=== PATIENT | female | born 1955 | race American Indian/Alaskan Native ===

== ENCOUNTER 2017-05-17 14:57 | Emergency (ER) | payer OTHER ==
[2017-05-17 15:46] VITALS: BP 147/82
[2017-05-17 16:44] LABS: Bacteria,Urine 1+ /HPF (Negative); Bilirubin,Urine NEG (Negative); Blood,Urine MOD (Negative); Color,Urine Yellow (Yellow); Granular Casts,Urine 3 /LPF; Mucus,Urine 2+ /HPF; Nitrite,Urine NEG (Negative)
[2017-05-17 17:33] LABS: Basophils # (Auto) 0.1 K/mm3 (0.0-0.1); Basophils % (Auto) 1.2 % (0.0-1.8); Eosinophils # (Auto) 0.4 K/mm3 (0.0-0.4); Eosinophils % (Auto) 7.9 % (0.0-4.3); Hemoglobin 11.7 gm/dl (10.1-14.3); Lymphocytes # (Auto) 1.1 K/mm3 (1.2-5.4); Lymphocytes % (Auto) 21.1 % (13.4-35.0); Mean Corpuscular HGB Conc 33 % (30-34); Mean Corpuscular Hemoglobin 30 pg (28-32); Mean Corpuscular Volume 90 fl (79-97); Monocytes # (Auto) 0.4 K/mm3 (0.0-0.8); Monocytes % (Auto) 8.3 % (0.0-7.3); Platelet Count 222 K/mm3 (140-440); Red Blood Count 3.88 M/mm3 (3.65-5.03); Red Cell Distribution Width 16.5 % (13.2-15.2)
[2017-05-17 17:52] LABS: Calcium 9.3 mg/dL (8.4-10.2)
== END 2017-05-17 20:25 | disposition left against medical advice (07) ==
LOC: ED 14:57
DX: R42 Dizziness and giddiness (principal); R11.0 Nausea; Z53.21 Procedure and treatment not carried out due to patient leaving prior to being seen by health care provider
CPT/HCPCS: 36415; 80048; 81001; 82805; 84484; 85025; 93005; 93010

== ENCOUNTER 2017-11-09 10:35 | Day surgery (SDC) | payer OTHER ==
[~2017-11-09 10:35] MED LIST: NEOFRIN OD SCH; TETRACAINE 0.5% OD PRN
[2017-11-09] MEDS: VIGAMOX OD SCH ×3 (11:00→11:14)
[2017-11-09] MEDS: AK-Dilate OD SCH ×3 (11:00→11:14)
[2017-11-09] MEDS: MYDRIACYL OD SCH ×3 (11:00→11:14)
--- NOTE | 2017-11-09 11:39 | Anesthesia Consultation ---
Anesthesia Consult and Med Hx Date of service: 11/09/17 - Airway Anesthetic Teeth Evaluation: Poor ROM Head & Neck: Adequate Mental/Hyoid Distance: Adequate Mallampati Class: Class II Intubation Access Assessment: Probably Good - Pulmonary Exam CTA: Yes - Cardiac Exam Cardiac Exam: RRR - Pre-Operative Health Status ASA Pre-Surgery Classification: ASA3 Proposed Anesthetic Plan: MAC - Pulmonary Hx Smoking: No Hx Asthma: No COPD: No Hx Pneumonia: No - Cardiovascular System Hx Hypertension: Yes (2014) Hx Heart Attack/AMI: Yes - Central Nervous System Hx Psychiatric Problems: No - Endocrine Hx End Stage Renal Disease: No - Hematic Hx Anemia: No - Other Systems Hx Alcohol Use: No Hx Substance Use: No Hx Cancer: No
[2017-11-09] MEDS ORDERED: VERSED ONE (11:42)
[2017-11-09] MEDS ORDERED: LOPRESSOR IV ONE (11:45)
[2017-11-09] MEDS ORDERED: SUBLIMAZE ONE (11:51)
[2017-11-09] MEDS ORDERED: PRED FORTE 1% ONE (12:24)
[2017-11-09] MEDS ORDERED: DIAMOX PO ONE (12:49)
--- NOTE | 2017-11-09 13:14 | Operative Report ---
Operative Report Operative Report: PATIENT'S NAME: DATE OF : DATE OF SURGERY: 11/09/2017 PREOPERATIVE DIAGNOSIS: Cataract right eye POSTOPERATIVE DIAGNOSIS: Same OPERATIVE PROCEDURE: Phacoemulsification with intraocular lens implantation, right eye SURGEON: Gisella Antonio M.D. EXAM PROCTOR SURGEON: Brittney Lens: [id number] 28.0 D ANESTHESIA: Monitored anesthesia care in combination with topical and intracameral anesthesia because of the established specific risk of reflux, arrhythmias, or anxiety attacks associated with ocular manipulation, as well as the difficulty of the reproduction production manager to manage such potentially catastrophic events while simultaneously attempting to complete the surgical procedure and was deemed necessary for the patient's safety to have an Secondary English Teacher present during the procedure whenever possible. An Secondary English Teacher was utilized to regulate the intravenous sedation of the patient so the patient was cooperative yet not asleep in order for the patient to successfully maintain fixation of the eye on the operating light of the microscope. COMPLICATIONS: o surgical complications No blood loss. ALLERGIES: Penicillin PROGNOSIS: Excellent INDICATIONS FOR SURGERY: The patient is undergoing surgery in the hopes of eliminating or improving these visual difficulties. PROCEDURE: After arriving at the surgery center, the patient was given topical anesthetic and dilating drops, as noted in the record. The patient was then taken into the operating room and given more anesthetic drops. The eyelids , lashes, and lid margins were scrubbed with Betadine solution, and the patient was draped. The Nurse Secondary English Teacher administered IV sedation and monitored the patient during the procedure. The eye was then fixated with a 0.12, and a stab incision was made in the peripheral clear cornea into the anterior chamber. This was made on my left side. Viscoelastic was next used to fill the anterior chamber. The eye was once again fixated with the 0.12 forceps and a keratome was used make an incision in clear cornea peripherally on my right hand side temporally. The capsule forceps were used to open the central anterior capsule and then make a continuous round capsulotomy. Hydrodissection was carried out utilizing a cannula and balanced salt solution to delineate the cortical material from the capsule and the nucleus from the cortical material. The phaco tip was introduced into the eye and used to remove the anterior cortical material in the area of the capsulotomy. Then the phaco tip was buried into the nucleus, and a chopping instrument was introduced into the eye and used to provide countertraction in the nucleus between this instrument and the phaco tip fracturing the nucleus. This procedure was repeated multiple times, providing multiple small segments of the lens, and then the phaco tip was used to remove each of these segments. An I/A tip was then used to remove the remaining cortex. The anterior chamber was refilled with viscoelastic. An one-piece, acrylic intraocular lens was then placed into an inserting cartridge. The tip of the inserting cartridge was introduced into the keratome incision and into the anterior chamber. The implant was gently advanced through the cartridge and into the eye, where it unfolded, and both haptics were placed in the capsular bag, where it centered nicely and appeared to be well fixated. After placement of the intraocular lens, the I~and~A handpiece was placed back into the eye and used to remove the viscoelastic, including viscoelastic that was behind the optic of the intraocular lens. The anterior chamber was then filled with balanced salt solution, and hydration of the wound was used to cause swelling of the wound and more appropriate watertight closure. When the wound was found to be firm, the patient was asked to comment on how bright the light was. If there was no light perception at all or if the light was substantially dimmer than during the rest of the surgery, the amount of fluid in the eye was decompressed to lower the intraocular pressure until the patient could see the bright light again. This was done to avoid any damage or decreased blood flow to the optic nerve. MEDICATIONS APPLIED AT END OF SURGERY: One drop of Pred Forte and Vigamox The patient was given a shield to wear at night and was instructed not to rub or push on the eye. DISCHARGE SUMMARY: The patient was released in stable condition. The patient and those with the patient were given a written sheet of postoperative instructions and counseling on any abnormal laboratory studies. The patient is to see us tomorrow for follow-up in the office and is to call immediately for any difficulties. Gisella Antonio M.D. Date
--- NOTE | 2017-11-09 13:15 | Short Stay Summary ---
Short Stay Documentation Date of service: 11/09/17 - History H&P: obtained from office - Allergies and Medications Current Medications: Allergies Penicillins Allergy (Verified 11/07/17 13:52) Nausea nausea and blackout Home Medications Medication Instructions Recorded Confirmed Last Taken Type Lisinopril [Zestril TAB] 20 mg PO QDAY 02/17/17 11/09/17 11/09/17 07:00 History amLODIPine [Norvasc] 10 mg PO DAILY 02/17/17 11/09/17 11/08/17 09:00 History Aspirin [Aspirin BABY CHEW TAB] 81 mg PO DAILY tab.chew 02/21/17 11/09/1711/08 09:00 Rx Ticagrelor [Brilinta] 90 mg PO BID #60 tablet 02/21/17 11/09/17 11/08/17 22:00 Rx glipiZIDE [Glucotrol] 5 mg PO BID #60 tablet 02/21/17 11/09/17 11/08/17 22:00 Rx ISOSORBIDE MONOnitrate [Imdur ER] 30 mg PO QDAY #30 tablet 06/01/17 11/09/17 09:00 Rx Metoprolol [Lopressor TAB] 25 mg PO BID #60 tablet 06/01/17 11/09/17 11/08/17 09 :00 Rx Active Medications Moxifloxacin HCl (Vigamox) 1 drops OD Q5MIN [facility] Stop: 11/11/17 06:01 Last Admin: 11/09/17 11:14 Dose: 1 drops Phenylephrine HCl (Ak-Dilate) 1 drops OD Q5MIN [facility] Stop: 11/09/17 23:59 Last Admin: 11/09/17 11:14 Dose: 1 drops Prednisolone Acetate (Pred Forte 1%) 1 drops OD QID ISHAN Last Admin: 11/09/17 12:40 Dose: 1 drops Tetracaine HCl (Tetracaine 0.5%) 1 drops OD Q5M PRN PRN Reason: Anesthesia Last Admin: 11/09/17 11:00 Dose: 1 drops Tropicamide (Mydriacyl) 1 drops OD Q5MIN [facility] Stop: 11/11/17 06:01 Last Admin: 11/09/17 11:14 Dose: 1 drops - Brief post op/procedure progress note Date of procedure: 11/09/17 Pre-op diagnosis: right cataract Post-op diagnosis: same Procedure: Phacoemulsification with intraocular lens insertion right eye Anesthesia: MAC, local Surgeon: TASHI MALAGON Estimated blood loss: none Pathology: none Condition: stable - Disposition Condition at discharge: Good Disposition: DC-01 TO HOME OR SELFCARE - Discharge Diagnoses (1) Nuclear cataract of right eye Status: Resolved Short Stay Discharge Plan Follow up with: KB CHRISTOPHER MD [Primary Care Provider] - 7 Days Forms: Outpatient Surgery DC Inst.
[2017-11-09 13:30] VITALS: BP 160/72
[2017-11-09] MEDS ORDERED: PRED FORTE 1% OD SCH (14:00)
== END 2017-11-09 13:25 | disposition home or self-care (01) ==
LOC: OR 10:35
DX: E11.36 Type 2 diabetes mellitus with diabetic cataract (principal); H25.11 Age-related nuclear cataract, right eye; I10 Essential (primary) hypertension; I25.10 Atherosclerotic heart disease of native coronary artery without angina pectoris; I25.2 Old myocardial infarction; Z79.82 Long term (current) use of aspirin; Z79.84 Long term (current) use of oral hypoglycemic drugs; Z88.0 Allergy status to penicillin; Z95.5 Presence of coronary angioplasty implant and graft; Z98.891 History of uterine scar from previous surgery; Z98.890 Other specified postprocedural states
CPT/HCPCS: 66984; 82962; J2250; J3010; V2632

== ENCOUNTER 2018-09-29 18:29 | Inpatient (IN) | payer OTHER ==
--- NOTE | 2018-09-29 18:43 | Emergency Department Report ---
Blank Doc - Documentation Documentation: 62 y/o female with PMH of DM, CAD, HTN whom recnetly loss her 3 days ago presents to ED after having a near syncope episode while leaving the home for arrangements. She was very pale and regain some energy and ocolor after having a Coke A Cola. Plan. Cardiac Eval
--- NOTE | 2018-09-29 19:13 | XRay Report ---
PROCEDURE: XR CHEST ROUTINE 2V TECHNIQUE: PA and lateral chest radiographs were obtained. HISTORY: Syncope COMPARISONS: None. FINDINGS: Frontal and lateral views the chest were acquired. The heart is normal in size. The lungs a ppear clear. The pleura and mediastinum are within normal limits. IMPRESSION: No active disease in the chest This document is electronically signed by Kartik Lovell MD., September 29 2018 07:11:09 PM ET
[2018-09-29 19:28] LABS: Alanine Aminotransferase 14 units/L (7-56); Albumin 4.1 g/dL (3.9-5); BUN/Creatinine Ratio 25; Blood Urea Nitrogen 28 mg/dL (7-17); Calcium 9.6 mg/dL (8.4-10.2); Hemolysis Index 11
[2018-09-29 19:42] LABS: Basophils % (Auto) 0.3 % (0.0-1.8); Eosinophils # (Auto) 0.1 K/mm3 (0.0-0.4); Eosinophils % (Auto) 1.4 % (0.0-4.3); Lymphocytes # (Auto) 1.2 K/mm3 (1.2-5.4); Lymphocytes % (Auto) 11.6 % (13.4-35.0); Mean Corpuscular HGB Conc 37 % (30-34); Mean Corpuscular Volume 91 fl (79-97); Monocytes # (Auto) 0.7 K/mm3 (0.0-0.8); Monocytes % (Auto) 6.8 % (0.0-7.3); Platelet Count 312 K/mm3 (140-440); Red Blood Count 1.25 M/mm3 (3.65-5.03); Red Cell Distribution Width 14.2 % (13.2-15.2)
[2018-09-29 19:50] LABS: Hemoglobin 4.2 gm/dl (10.1-14.3)
[2018-09-29 19:51] LABS: Hematocrit 11.3 % (30.3-42.9)
--- NOTE | 2018-09-29 20:21 | Emergency Department Report ---
ED Syncope HPI - General Chief Complaint: Syncope Stated Complaint: PASSED OUT Time Seen by Provider: 09/29/18 20:10 Source: patient, family Exam Limitations: no limitations - History of Present Illness Initial Comments: Patient is a 62-year-old female that presents to emergency with complaints of near syncopal episode. Patient states she was shopping and became lightheaded and diaphoretic. Patient states she felt like her sugar was low. She states she never had a syncopal episode or passed out just felt like she was going to pass out. Patient states that she did not have any chest pain or shortness of breath. Patient states he drank a Coke and felt better. Patient denies loss of consciousness. Patient denies head injury. Patient states she has a history of high cholesterol, hypertension, diabetes and NE 1 and CAD with 4 stents. Timing/Prior Episodes: no prior history, single episode today Precipitating Factors: Positive: diaphoresis, lightheadedness Context: activity, emotional stress Loss of Consciousness: no loss of consciousness Current Symptoms: back to normal. denies: blurred vision, chest pain, diaphoresis, dizziness, headache, injury, lightheadedness, loss of bladder control, loss of bowel control, motionless, nausea, pale, shallow/rapid breathing, weak/absent pulse, weakness - Related Data Allergies/Adverse Reactions: Allergies Penicillins Allergy (Verified 09/29/18 18:30) Nausea nausea and blackout Home Medications: Ambulatory Orders Lisinopril [Zestril TAB] 20 mg PO QDAY 02/17/17 amLODIPine [Norvasc] 10 mg PO DAILY 02/17/17 Aspirin [Aspirin BABY CHEW TAB] 81 mg PO DAILY tab.chew 02/21/17 ISOSORBIDE MONOnitrate [Imdur ER] 30 mg PO QDAY #30 tablet 06/01/17 Metoprolol [Lopressor TAB] 25 mg PO BID #60 tablet 06/01/17 Ticagrelor [Brilinta] 90 mg PO DAILY 09/29/18 glipiZIDE [Glucotrol] 5 mg PO DAILY 09/29/18 ED Review of Systems ROS: Stated complaint: PASSED OUT Other details as noted in HPI Constitutional: diaphoresis, malaise. denies: chills, fever Eyes: denies: eye pain, eye discharge, vision change ENT: denies: ear pain, throat pain Respiratory: denies: cough, shortness of breath, wheezing Cardiovascular: denies: chest pain, palpitations Endocrine: no symptoms reported Gastrointestinal: denies: abdominal pain, nausea, diarrhea, constipation, hematemesis, melena, hematochezia Genitourinary: denies: urgency, dysuria, discharge Musculoskeletal: denies: back pain, joint swelling, arthralgia Skin: denies: rash, lesions Neurological: denies: headache, weakness, paresthesias Psychiatric: denies: anxiety, depression Hematological/Lymphatic: denies: easy bleeding, easy bruising ED Past Medical Hx - Past Medical History Previous Medical History?: Yes Hx Hypertension: Yes (since 2014) Hx Heart Attack/AMI: Yes Hx Diabetes: Yes (since 2003) - Surgical History Past Surgical History?: Yes Hx Coronary Stent: Yes (X4) - Family History Family history: no significant - Social History Smoking Status: Never Smoker Substance Use Type: None - Medications Home Medications: Home Medications Medication Instructions Recorded Confirmed Last Taken Type Lisinopril [Zestril TAB] 20 mg PO QDAY 02/17/17 09/29/18 03/28/18 History amLODIPine [Norvasc] 10 mg PO DAILY 02/17/17 09/29/18 03/28/18 History Aspirin [Aspirin BABY CHEW TAB] 81 mg PO DAILY tab.chew 02/21/17 09/29/18 03/28/18 Rx ISOSORBIDE MONOnitrate [Imdur ER] 30 mg PO QDAY #30 tablet 06/01/17 09/29/18 03/28/18 Rx Metoprolol [Lopressor TAB] 25 mg PO BID #60 tablet 06/01/17 09/29/18 03/29/18 06:30 Rx Ticagrelor [Brilinta] 90 mg PO DAILY 09/29/18 09/29/18 Unknown History glipiZIDE [Glucotrol] 5 mg PO DAILY 09/29/18 09/29/18 Unknown History ED Physical Exam - General Limitations: No Limitations General appearance: alert, in no apparent distress - Head Head exam: Present: atraumatic, normocephalic - Eye Eye exam: Present: normal appearance, PERRL Pupils: Present: normal accommodation - ENT ENT exam: Present: mucous membranes moist - Neck Neck exam: Present: normal inspection. Absent: tenderness - Respiratory Respiratory exam: Present: normal lung sounds bilaterally. Absent: respiratory distress, wheezes, rales - Cardiovascular Cardiovascular Exam: Present: regular rate, normal rhythm. Absent: systolic murmur, diastolic murmur, rubs, gallop - GI/Abdominal GI/Abdominal exam: Present: soft, normal bowel sounds. Absent: distended, tenderness, guarding - Rectal Rectal exam: Present: normal inspection, normal rectal tone, heme (-) stool, other (nurse Tisha in the room during rectal exam). Absent: heme (+) stool, black stool, bloody stool - Extremities Exam Extremities exam: Present: normal inspection - Back Exam Back exam: Present: normal inspection - Neurological Exam Neurological exam: Present: alert, oriented X3 - Psychiatric Psychiatric exam: Present: normal affect, normal mood - Skin Skin exam: Present: warm, dry, intact, normal color. Absent: rash ED Course Vital Signs 09/29/18 09/29/18 09/29/18 18:38 20:25 21:04 Temperature 98.0 F 97.6 F Pulse Rate 68 75 78 Respiratory 18 16 Rate Blood Pressure 129/58 152/108 Blood Pressure 190/81 [Left] O2 Sat by Pulse 99 100 Oximetry 09/29/18 09/29/18 22:00 23:00 Temperature Pulse Rate 82 82 Respiratory 22 19 Rate Blood Pressure 114/57 136/72 Blood Pressure [Left] O2 Sat by Pulse 100 100 Oximetry - Reevaluation(s) Reevaluation #1: Discussed all results with patient. Patient will be admitted to the hospitalist service. Patient agrees to plan of care. 09/29/18 20:51 - Consultations Consultation #1: Hospitalist consulted for admission. Hospitalist to admit patient. Hospitalist to assume care patient. 09/29/18 20:52 ED Medical Decision Making - Lab Data Result diagrams: 09/29/18 22:58 09/29/18 18:46 - EKG Data -: EKG Interpreted by Me EKG shows normal: sinus rhythm, axis, intervals, QRS complexes, ST-T waves Rate: normal - Radiology Data Radiology results: report reviewed, image reviewed PROCEDURE: XR CHEST ROUTINE 2V TECHNIQUE: PA and lateral chest radiographs were obtained. HISTORY: Syncope COMPARISONS: None. FINDINGS: Frontal and lateral views the chest were acquired. The heart is normal in size. The lungs appear clear. The pleura and mediastinum are within normal limits. IMPRESSION: No active disease in the chest - Medical Decision Making Patient is a 62-year-old female that presents emergency room for near syncope and lightheadedness. Patient found to have severe anemia. Patient typed and crossed for 1 unit. Patient has history of CAD. Patient admitted to the hospitalist service. Patient's EKG negative for acute findings. Patient's other labs unremarkable. - Differential Diagnosis anemia. Near syncope. Lightheadedness. Critical Care Time: Yes Critical care attestation.: If time is entered above; I have spent that time in minutes in the direct care of this critically ill patient, excluding procedure time. Critical Care Time: 35 minutes ED Disposition Clinical Impression: Severe anemia, Near syncope CAD (coronary artery disease) Qualifiers: Coronary Disease-Associated Artery/Lesion type: [place] artery [place] vs. transplanted heart: [place] heart Associated angina: without angina Qualified Code(s): I25.10 - Atherosclerotic heart disease of [place] coronary artery wit hout angina pectoris Hypertension Qualifiers: Hypertension type: essential hypertension Qualified Code(s): I10 - Essential (primary) hypertension Anemia Qualifiers: Anemia type: unspecified type Qualified Code(s): D64.9 - Anemia, unspecified Disposition: DC-09 OP ADMIT IP TO THIS HOSP Is pt being admited?: Yes Does the pt Need Aspirin: No Condition: Critical Time of Disposition: 20:59
[2018-09-29] MEDS ORDERED: NACL 0.9% 500 ML 500 ML IV ONE (20:53)
[2018-09-29] MEDS ORDERED: APRESOLINE IV ONE (20:58)
[2018-09-29 23:16] LABS: Hematocrit 33.5 % (30.3-42.9); Hemoglobin 11.6 gm/dl (10.1-14.3); Mean Corpuscular HGB Conc 35 % (30-34); Mean Corpuscular Volume 91 fl (79-97); Platelet Count 199 K/mm3 (140-440); Red Blood Count 3.69 M/mm3 (3.65-5.03); Red Cell Distribution Width 14.2 % (13.2-15.2)
[2018-09-29] MEDS ORDERED: ZOFRAN IV PRN (23:26)
[2018-09-29] MEDS ORDERED: TYLENOL PO PRN (23:26)
[2018-09-29] MEDS ORDERED: SODIUM CHLORIDE FLUSH SYRINGE 10 ML IV PRN (23:26)
--- NOTE | 2018-09-29 23:32 | History and Physical Report ---
History of Present Illness Date of examination: 09/29/18 History of present illness: 62-year-old lady with a history of hypertension, diabetes, coronary artery disease comes emergency room with complaints almost passing out while shopping. She felt dizzy, jittery, everything got foggy. She thought her sugar was low and drank some coke,blood sugar was not checked. She states her symptoms improve after drinking coke. Denies any kind of bleeding Review Of Systems: Constitutional: no weight loss Ears, eyes, nose, mouth and throat: no nasal congestion, no nasal discharge, no sinus pressure, blurry vision, diplopia Neck: No neck pain or rigidity. Cardiovascular: No palpitations, chest pain Respiratory: No shortness of breath, cough Gastrointestinal: No abdominal pain, hematochezia Genitourinary : no dysuria, frequency , hematuria Musculoskeletal: no muscle ache Integumentary: no rash, no pruritis Neurological: no parathesias, focal weakness Endocrine: no cold or heat intolerance, no polyuria or polydipsia Hematologic/Lymphatic: no easy bruising, no easy bleeding, no gland swelling Allergic/Immunologic: no urticaria, no angioedema. PAST MEDICAL HISTORY:hypertension, diabetes, coronary artery disease PAST SURGICAL HISTORY: None FAMILY HISTORY: Hypertension SOCIAL HISTORY: Denies alcohol, tobacco, drugs Medications and Allergies Allergies Allergy/AdvReac Type Severity Reaction Status Date / Time Penicillins Allergy Nausea Verified 09/29/18 18:30 Home Medications Medication Instructions Recorded Confirmed Last Taken Type Lisinopril [Zestril TAB] 20 mg PO QDAY 02/17/17 09/29/18 03/28/18 History amLODIPine [Norvasc] 10 mg PO DAILY 02/17/17 09/29/18 03/28/18 History Aspirin [Aspirin BABY CHEW TAB] 81 mg PO DAILY tab.chew 02/21/17 09/29/18 03/28/18 Rx ISOSORBIDE MONOnitrate [Imdur ER] 30 mg PO QDAY #30 tablet 06/01/17 09/29/18 03/28/18 Rx Metoprolol [Lopressor TAB] 25 mg PO BID #60 tablet 06/01/17 09/29/18 03/29/18 06:30 Rx Ticagrelor [Brilinta] 90 mg PO DAILY 09/29/18 09/29/18 Unknown History glipiZIDE [Glucotrol] 5 mg PO DAILY 09/29/18 09/29/18 Unknown History Active Meds: Active Medications Acetaminophen (Tylenol) 650 mg PO Q4H PRN PRN Reason: Pain MILD(1-3)/Fever >100.5/BHATTI Enoxaparin Sodium (Lovenox) 30 mg SUB-Q QDAY ISHAN Ondansetron HCl (Zofran) 4 mg IV Q8H PRN PRN Reason: Nausea And Vomiting Sodium Chloride (Sodium Chloride Flush Syringe 10 Ml) 10 ml IV BID ISHAN Sodium Chloride (Sodium Chloride Flush Syringe 10 Ml) 10 ml IV PRN PRN PRN Reason: LINE FLUSH Exam - Physical Exam Narrative exam: Gen. appearance: Patient lying in bed in no acute distress HEENT: Normocephalic/atraumatic, pupils equal round reactive to light, extra occular movement intact, no scleral icterus, no JVD or thyromegaly or nodule, neck is supple, mucous membrane moist, no erythema or exudate Heart: S1-S2, regular rate and rhythm Lungs: Clear to auscultation bilateral breathing comfortable Abdomen: Positive bowel sounds, nontender, nondistended, no organomegaly Extremities: No edema, cyanosis, clubbing Neuro:: Oriented 3 , cranial nerves II-12 intact, speech, motor intact Skin: No rash, nodules, warm dry - Constitutional Vitals: Temp Pulse Resp BP Pulse Ox 97.6 F 82 19 136/72 100 09/29/18 20:25 09/29/18 23:00 09/29/18 23:00 09/29/18 23:00 09/29/18 23:00 Results - Labs CBC & Chem 7: 09/29/18 22:58 09/29/18 18:46 Labs: Abnormal lab results 09/29/18 09/29/18 09/29/18 Range/Units 18:46 18:46 20:10 RBC 1.25 L (3.65-5.03) M/mm3 Hgb 4.2 L* (10.1-14.3) gm/dl Hct 11.3 L* (30.3-42.9) % MCH 33 H (28-32) pg MCHC 37 H (30-34) % Lymph % (Auto) 11.6 L (13.4-35.0) % Seg Neutrophils % 79.9 H (40.0-70.0) % Seg Neutrophils # 8.0 H (1.8-7.7) K/mm3 BUN 28 H (7-17) mg/dL Glucose 297 H (65-100) mg/dL Crossmatch See Detail 09/29/18 Range/Units 22:58 RBC (3.65-5.03) M/mm3 Hgb (10.1-14.3) gm/dl Hct (30.3-42.9) % MCH (28-32) pg MCHC 35 H (30-34) % Lymph % (Auto) (13.4-35.0) % Seg Neutrophils % (40.0-70.0) % Seg Neutrophils # (1.8-7.7) K/mm3 BUN (7-17) mg/dL Glucose (65-100) mg/dL Crossmatch - Imaging and Cardiology EKG: image reviewed Chest x-ray: report reviewed Assessment and Plan Assessment Anemia Near syncope Coronary artery disease Hypertension Diabetes Plan Admit to medicine Repeat CBCD, rule out error, hold transfusion Check cardiac enzymes, carotid doppler, echo, start fluids Check fingersticks and initiate insulin sliding scale Hold diabetic medication for now Continue appropriate outpatient medications DVT prophylaxis
[2018-09-30 00:27] LABS: Creatine Kinase MB 2.8 ng/mL (0.0-4.0)
[2018-09-30] MEDS ORDERED: NACL 0.45% 1000 ML 1,000 ML IV SCH (02:00)
[2018-09-30] MEDS ORDERED: D50W (25GM) Syringe IV PRN (06:02)
[2018-09-30] MEDS ORDERED: GLUCOTROL PO SCH (08:00)
[2018-09-30] MEDS: LOPRESSOR PO SCH ×2 (09:34→22:22)
[2018-09-30] MEDS: HumaLOG SUB-Q SCH ×4 (09:34→22:23)
[2018-09-30] MEDS: NORVASC PO SCH (09:35)
[2018-09-30] MEDS: BABY ASPIRIN PO SCH (09:35)
[2018-09-30] MEDS: ZESTRIL PO SCH (09:35)
[2018-09-30] MEDS ORDERED: LOVENOX SUB-Q SCH (10:00)
[2018-09-30] MEDS ORDERED: BRILINTA PO SCH ×2 (10:00→22:00)
[2018-09-30 10:43] LABS: BUN/Creatinine Ratio 31; Blood Urea Nitrogen 25 mg/dL (7-17); Calcium 9.5 mg/dL (8.4-10.2); Hemolysis Index 0
--- NOTE | 2018-09-30 10:43 | Vascular Lab Report ---
PROCEDURE: VL CAROTID DUPLEX BILAT HISTORY: near syncope FINDINGS: Real-time ultrasound of the cervical arterial vasculature was performed using grayscale and color Doppler images. On the right, peak systolic velocity in the common carotid artery was 102 cm/s. In the internal carot id was 86 cm/s and in the external carotid 107 cm/s. Flow in the vertebral artery was antegrade at 65 cm/s. The ratio of flow of the internal carotid to the common carotid was 0.84 which is within jameson l limits.There is plaque in the right proximal internal carotid artery resulting in a short segment e stimated 30% stenosis On the left, peak systolic velocity in the common carotid artery was 99.5 cm/s. In the internal carot id it was 93 cm/s and in the external carotid 77 cm/s. Flow in the vertebral artery was antegrade at 37 cm/s. The ratio of flow of the internal carotid to the common carotid was 0.93 which is within nor mal limits. IMPRESSION: No stenosis of greater than 50% is seen in the cervical arterial vasculature This document is electronically signed by Kartik Lovell MD., September 30 2018 10:41:10 AM ET
[2018-09-30 10:47] LABS: Basophils % (Auto) 0.4 % (0.0-1.8); Eosinophils # (Auto) 0.1 K/mm3 (0.0-0.4); Hematocrit 33.1 % (30.3-42.9); Hemoglobin 11.1 gm/dl (10.1-14.3); Lymphocytes # (Auto) 1.1 K/mm3 (1.2-5.4); Mean Corpuscular HGB Conc 34 % (30-34); Mean Corpuscular Volume 92 fl (79-97); Monocytes # (Auto) 0.4 K/mm3 (0.0-0.8); Monocytes % (Auto) 8.7 % (0.0-7.3); Platelet Count 197 K/mm3 (140-440); Red Cell Distribution Width 14.5 % (13.2-15.2)
[2018-09-30 10:51] LABS: Creatine Kinase MB 2.3 ng/mL (0.0-4.0)
--- NOTE | 2018-09-30 11:17 | Progress Note ---
Assessment and Plan Assessment and plan: 62f w pmh of cad who pw near syncope dx near syncope cad htn dm plan carotid doppler neg, echo pending no events on tele -cardiology input appreciated History Interval history: Review of systems Constitutional: No fevers, no malaise, no joint pains CVS: No chest pain, no orthopnea, no dyspnea on exertion, no pedal edema GI: No abdominal pain, no diarrhea, no vomiting, no constipation Respiratory: no wheezing, no coughing Hospitalist Physical - Physical exam Narrative exam: General.: Appears well, no distress, nontoxic HEENT: Moist mucous membranes, extraocular muscles intact, no lymphadenopathy Neck: supple Cardiac: S1-S2 heard Lungs: clear to auscultation bilaterally Abdomen: soft , nontender, nondistended, bowel sounds positive Extremities: no edema clubbing or cyanosis Skin: no rash or lesions Neurologic: no gross focal deficits Psych: calm, and cooperative - Constitutional Vitals: Temp Pulse Resp BP Pulse Ox 98.5 F 67 18 123/63 100 09/30/18 08:49 09/30/18 08:49 09/30/18 08:49 09/30/18 08:49 09/30/18 08:49 Results - Labs CBC & Chem 7: 09/30/18 09:43 09/30/18 09:43 Labs: Laboratory Last Values WBC 5.0 K/mm3 (4.5-11.0) 09/30/18 09:43 RBC 3.60 M/mm3 (3.65-5.03) L 09/30/18 09:43 Hgb 11.1 gm/dl (10.1-14.3) 09/30/18 09:43 Hct 33.1 % (30.3-42.9) 09/30/18 09:43 MCV 92 fl (79-97) 09/30/18 09:43 MCH 31 pg (28-32) 09/30/18 09:43 MCHC 34 % (30-34) 09/30/18 09:43 RDW 14.5 % (13.2-15.2) 09/30/18 09:43 Plt Count 197 K/mm3 (140-440) 09/30/18 09:43 Lymph % (Auto) 22.0 % (13.4-35.0) 09/30/18 09:43 Sac % (Auto) 8.7 % (0.0-7.3) H 09/30/18 09:43 Eos % (Auto) 2.0 % (0.0-4.3) 09/30/18 09:43 Baso % (Auto) 0.4 % (0.0-1.8) 09/30/18 09:43 Lymph # 1.1 K/mm3 (1.2-5.4) L 09/30/18 09:43 Sac # 0.4 K/mm3 (0.0-0.8) 09/30/18 09:43 Eos # 0.1 K/mm3 (0.0-0.4) 09/30/18 09:43 Baso # 0.0 K/mm3 (0.0-0.1) 09/30/18 09:43 Seg Neutrophils % 66.9 % (40.0-70.0) 09/30/18 09:43 Seg Neutrophils # 3.4 K/mm3 (1.8-7.7) 09/30/18 09:43 Sodium 143 mmol/L (137-145) 09/30/18 09:43 Potassium 4.0 mmol/L (3.6-5.0) 09/30/18 09:43 Chloride 104.8 mmol/L (98-107) 09/30/18 09:43 Carbon Dioxide 26 mmol/L (22-30) 09/30/18 09:43 16 mmol/L 09/30/18 09:43 BUN 25 mg/dL (7-17) H 09/30/18 09:43 0.8 mg/dL (0.7-1.2) 09/30/18 09:43 Estimated GFR > 60 ml/min 09/30/18 09:43 31 % 09/30/18 09:43 Glucose 148 mg/dL (65-100) H 09/30/18 09:43 POC Glucose 163 (70-105) H 09/30/18 09:19 Calcium 9.5 mg/dL (8.4-10.2) 09/30/18 09:43 0.40 mg/dL (0.1-1.2) 09/29/18 18:46 AST 17 units/L (5-40) 09/29/18 18:46 ALT 14 units/L (7-56) 09/29/18 18:46 78 units/L (35-129) 09/29/18 18:46 93 units/L (30-135) 09/30/18 09:43 CK-MB (CK-2) 2.3 ng/mL (0.0-4.0) 09/30/18 09:43 CK-MB (CK-2) Rel Index 2.4 (0-4) 09/30/18 09:43 < 0.010 ng/mL (0.00-0.029) 09/30/18 09:43 NT-Pro-B Natriuret Pep 436.0 pg/mL (0-900) 09/29/18 18:46 7.5 g/dL (6.3-8.2) 09/29/18 18:46 4.1 g/dL (3.9-5) 09/29/18 18:46 1.2 % 09/29/18 18:46 Blood Type O POSITIVE 09/29/18 20:10 Antibody Screen Negative 09/29/18 20:10 Crossmatch See Detail 09/29/18 20:10 Active Medications - Current Medications Current Medications: Generic Name Dose Route Start Last Admin Trade Name Freq PRN Reason Stop Dose Admin Acetaminophen 650 mg 09/29/18 23:26 Tylenol PO Q4H PRN Pain MILD(1-3)/Fever >100.5/BHATTI Amlodipine Besylate 10 mg 09/30/18 10:00 09/30/18 09:35 Norvasc PO 10 mg DAILY ISHAN Administration Aspirin 81 mg 09/30/18 10:00 09/30/18 09:35 Baby Aspirin PO 81 mg DAILY ISHAN Administration Dextrose 50 ml 09/30/18 06:02 D50w (25gm) Syringe IV PRN PRN Hypoglycemia Sodium Chloride 1,000 mls @ 75 mls/hr 09/30/18 02:00 Nacl 0.45% 1000 Ml IV DIRECT [facility] Insulin Human Lispro 0 unit 09/30/18 07:30 09/30/18 09:34 Humalog SUB-Q 2 unit ACHS ISHAN Administration Protocol Lisinopril 20 mg 09/30/18 10:00 09/30/18 09:35 Zestril PO 20 mg QDAY ISHAN Administration Metoprolol Tartrate 25 mg 09/30/18 10:00 09/30/18 09:34 Lopressor PO 25 mg BID ISHAN Administration Ondansetron HCl 4 mg 09/29/18 23:26 Zofran IV Q8H PRN Nausea And Vomiting Sodium Chloride 10 ml 09/30/18 10:00 Sodium Chloride Flush Syringe 10 Ml IV BID ISHAN Sodium Chloride 10 ml 09/29/18 23:26 Sodium Chloride Flush Syringe 10 Ml IV PRN PRN LINE FLUSH Ticagrelor 90 mg 09/30/18 10:00 09/30/18 09:35 Brilinta PO 90 mg DAILY ISHAN Administration Nutrition/Malnutrition Assess - Dietary Evaluation Nutrition/Malnutrition Findings: Nutrition Notes Start: 09/30/18 08:48 Freq: Status: Active Protocol: Document 09/30/18 08:48 CHERRY (Rec: 09/30/18 08:48 CHERRY [id number] [email or web address]) Nutrition Notes Need for Assessment generated from: bench inspector Initial or Follow up Brief Note Subjective/Other Information Pt screened for new onset of DM, however, pt with hx of DM. Will assess upon further consult or LOS.
--- NOTE | 2018-09-30 13:53 | Consultation ---
<BERRY OROZCO - Last Filed: 09/30/18 14:19> History of Present Illness Consult date: 09/30/18 Requesting physician: CLARE HAAS Consult reason: syncope History of present illness: Ms. Nieves is a 62 y/o female with a medical history significant for hypertension, diabetes, CAD s/p PCI to the LAD and RCA in 2017 and palpitations who presented to the ED on 09/30/2018 after a near-syncopal episode while shopping. She states she felt dizzy and jittery and initially attributed the symptoms to hypoglycemia; they resolved after drinking a Coke. She also reports not eating well, leading to abnormal blood sugars and additionally, she has experienced the stress of her 's recent . She follows with Dr. Manning in our office. An echo in May 2017 found an EF of 55 to 60 percent and no valvular abn ormalities. A Lexiscan stress test in April 2017 was negative for ischemia. Past History Past Medical History: CAD, diabetes, hypertension Past Surgical History: PTCA Medications and Allergies Allergies Allergy/AdvReac Type Severity Reaction Status Date / Time Penicillins Allergy Nausea Verified 09/29/18 18:30 Home Medications Medication Instructions Recorded Confirmed Last Taken Type Lisinopril [Zestril TAB] 20 mg PO QDAY 02/17/17 09/30/18 1 Day Ago History ~09/29/18 amLODIPine [Norvasc] 10 mg PO DAILY 02/17/17 09/30/18 1 Day Ago History ~09/29/18 Aspirin [Aspirin BABY CHEW TAB] 81 mg PO DAILY tab.chew 02/21/17 09/30/18 1 Day Ago Rx ~09/29/18 ISOSORBIDE MONOnitrate [Imdur ER] 30 mg PO QDAY #30 tablet 06/01/17 09/30/18 1 Day Ago Rx ~09/29/18 Metoprolol [Lopressor TAB] 25 mg PO BID #60 tablet 06/01/17 09/30/18 1 Day Ago Rx ~09/29/18 Ticagrelor [Brilinta] 90 mg PO DAILY 09/29/18 09/30/18 1 Day Ago History ~09/29/18 glipiZIDE [Glucotrol] 5 mg PO DAILY 09/29/18 09/30/18 1 Day Ago History ~09/29/18 Active Meds: Active Medications Acetaminophen (Tylenol) 650 mg PO Q4H PRN PRN Reason: Pain MILD(1-3)/Fever >100.5/BHATTI Amlodipine Besylate (Norvasc) 10 mg PO DAILY [facility] Last Admin: 09/30/18 09:35 Dose: 10 mg Documented by: Aspirin (Baby Aspirin) 81 mg PO DAILY [facility] Last Admin: 09/30/18 09:35 Dose: 81 mg Documented by: Dextrose (D50w (25gm) Syringe) 50 ml IV PRN PRN PRN Reason: Hypoglycemia Sodium Chloride (Nacl 0.45% 1000 Ml) 1,000 mls @ 75 mls/hr IV DIRECT [facility] Insulin Human Lispro (Humalog) 0 unit SUB-Q ACHS [facility]; Protocol Last Admin: 09/30/18 12:27 Dose: Not Given Documented by: Lisinopril (Zestril) 20 mg PO QDAY [facility] Last Admin: 09/30/18 09:35 Dose: 20 mg Documented by: Metoprolol Tartrate (Lopressor) 25 mg PO BID [facility] Last Admin: 09/30/18 09:34 Dose: 25 mg Documented by: Ondansetron HCl (Zofran) 4 mg IV Q8H PRN PRN Reason: Nausea And Vomiting Sodium Chloride (Sodium Chloride Flush Syringe 10 Ml) 10 ml IV BID [facility] Sodium Chloride (Sodium Chloride Flush Syringe 10 Ml) 10 ml IV PRN PRN PRN Reason: LINE FLUSH Ticagrelor (Brilinta) 90 mg PO DAILY [facility] Last Admin: 09/30/18 09:35 Dose: 90 mg Documented by: Review of Systems All systems: negative Constitutional: fatigue, other Physical Examination Last Vital Signs Temp 98.5 F 09/30/18 08:49 Pulse 61 09/30/18 12:24 Resp 18 09/30/18 08:49 BP 127/62 09/30/18 12:24 Pulse Ox 97 09/30/18 12:24 General appearance: no acute distress HEENT: Positive: PERRL Neck: Positive: neck supple Cardiac: Positive: Reg Rate and Rhythm Lungs: Positive: Normal Exam Abdomen: Positive: Unremarkable Female genitourinary: deferred Skin: Positive: Clear Musculoskeletal: Normal Range of Motion Extremities: Present: normal Results 09/30/18 09:43 09/30/18 09:43 Cardiac Enzymes 09/29/18 09/29/18 09/30/18 Range/Units 18:46 23:32 09:43 AST 17 (5-40) units/L CK-MB (CK-2) 2.8 2.3 (0.0-4.0) ng/mL CBC 09/29/18 09/29/18 09/30/18 Range/Units 18:46 22:58 09:43 WBC 10.0 7.0 5.0 (4.5-11.0) K/mm3 RBC 1.25 L 3.69 3.60 L (3.65-5.03) M/mm3 Hgb 4.2 L* 11.6 D 11.1 (10.1-14.3) gm/dl Hct 11.3 L* 33.5 D 33.1 (30.3-42.9) % Plt Count 312 199 197 (140-440) K/mm3 Lymph # 1.2 1.1 L (1.2-5.4) K/mm3 [place] # 0.7 0.4 (0.0-0.8) K/mm3 Eos # 0.1 0.1 (0.0-0.4) K/mm3 Baso # 0.0 0.0 (0.0-0.1) K/mm3 Comprehensive Metabolic Panel 09/29/18 09/30/18 Range/Units 18:46 09:43 Sodium 141 143 (137-145) mmol/L Potassium 4.6 4.0 (3.6-5.0) mmol/L Chloride 104.4 104.8 (98-107) mmol/L Carbon Dioxide 25 26 (22-30) mmol/L BUN 28 H 25 H (7-17) mg/dL Creatinine 1.1 0.8 (0.7-1.2) mg/dL Glucose 297 H 148 H (65-100) mg/dL Calcium 9.6 9.5 (8.4-10.2) mg/dL AST 17 (5-40) units/L ALT 14 (7-56) units/L Alkaline Phosphatase 78 (35-129) units/L Total Protein 7.5 (6.3-8.2) g/dL Albumin 4.1 (3.9-5) g/dL - Imaging and Cardiology Stress echo: report reviewed (2018: No evidence of ischemia) Echo: report reviewed (2018: EF of 55 to 60%, no valvular abnormalities) - EKG Interpretation EKG: sinus rhythm EKG interpretations - Telemetry EKG Rhythm: Sinus Rhythm Assessment and Plan Will repeat echocardiogram and obtain US of carotids. Will resume Brilinta at 60 mg BID. Will start statin therapy. Continue ASA, lisinopril, metoprolol and Norvasc. Patient has been seen in conjunction with Dr. Ayala, who agrees with assessment and plan. - Patient Problems (1) Near syncope Current Visit: Yes Status: Acute (2) Altered mental status Current Visit: Yes Status: Acute (3) Hypoglycemia Current Visit: Yes Status: Suspected (4) Anemia Current Visit: Yes Status: Acute Qualifiers: Anemia type: unspecified type Qualified Code(s): D64.9 - Anemia, unspecified (5) CAD (coronary artery disease) Current Visit: Yes Status: Chronic Qualifiers: Coronary Disease-Associated Artery/Lesion type: [place] artery [place] vs. transplanted heart: [place] heart Associated angina: without angina Qualified Code(s): I25.10 - Atherosclerotic heart disease of [place] coronary artery without angina pectoris (6) Hypertension Current Visit: Yes Status: Chronic Qualifiers: Hypertension type: essential hypertension Qualified Code(s): I10 - Essential (primary) hypertension (7) Diabetes mellitus Current Visit: Yes Status: Chronic (8) Stented coronary artery Current Visit: No Status: Chronic <AZUL AYALA R - Last Filed: 09/30/18 14:28> Medications and Allergies Active Meds: Active Medications Acetaminophen (Tylenol) 650 mg PO Q4H PRN PRN Reason: Pain MILD(1-3)/Fever >100.5/BHATTI Amlodipine Besylate (Norvasc) 10 mg PO DAILY [facility] Last Admin: 09/30/18 09:35 Dose: 10 mg Documented by: Aspirin (Baby Aspirin) 81 mg PO DAILY [facility] Last Admin: 09/30/18 09:35 Dose: 81 mg Documented by: Atorvastatin Calcium (Lipitor) 40 mg PO QHS [facility] Dextrose (D50w (25gm) Syringe) 50 ml IV PRN PRN PRN Reason: Hypoglycemia Sodium Chloride (Nacl 0.45% 1000 Ml) 1,000 mls @ 75 mls/hr IV DIRECT [facility] Insulin Human Lispro (Humalog) 0 unit SUB-Q ACHS [facility]; Protocol Last Admin: 09/30/18 12:27 Dose: Not Given Documented by: Lisinopril (Zestril) 20 mg PO QDAY [facility] Last Admin: 09/30/18 09:35 Dose: 20 mg Documented by: Metoprolol Tartrate (Lopressor) 25 mg PO BID [facility] Last Admin: 09/30/18 09:34 Dose: 25 mg Documented by: Ondansetron HCl (Zofran) 4 mg IV Q8H PRN PRN Reason: Nausea And Vomiting Sodium Chloride (Sodium Chloride Flush Syringe 10 Ml) 10 ml IV BID [facility] Sodium Chloride (Sodium Chloride Flush Syringe 10 Ml) 10 ml IV PRN PRN PRN Reason: LINE FLUSH Ticagrelor (Brilinta) 60 mg PO BID [facility] Physical Examination Vital Signs Temp Pulse Resp BP Pulse Ox 98.0 F 68 18 129/58 99 09/29/18 18:38 09/29/18 18:38 09/29/18 18:38 09/29/18 18:38 09/29/18 18:38 Results 09/30/18 09:43 09/30/18 09:43 Cardiac Enzymes 09/29/18 09/29/18 09/30/18 Range/Units 18:46 23:32 09:43 AST 17 (5-40) units/L CK-MB (CK-2) 2.8 2.3 (0.0-4.0) ng/mL CBC 09/29/18 09/29/18 09/30/18 Range/Units 18:46 22:58 09:43 WBC 10.0 7.0 5.0 (4.5-11.0) K/mm3 RBC 1.25 L 3.69 3.60 L (3.65-5.03) M/mm3 Hgb 4.2 L* 11.6 D 11.1 (10.1-14.3) gm/dl Hct 11.3 L* 33.5 D 33.1 (30.3-42.9) % Plt Count 312 199 197 (140-440) K/mm3 Lymph # 1.2 1.1 L (1.2-5.4) K/mm3 [place] # 0.7 0.4 (0.0-0.8) K/mm3 Eos # 0.1 0.1 (0.0-0.4) K/mm3 Baso # 0.0 0.0 (0.0-0.1) K/mm3 Comprehensive Metabolic Panel 09/29/18 09/30/18 Range/Units 18:46 09:43 Sodium 141 143 (137-145) mmol/L Potassium 4.6 4.0 (3.6-5.0) mmol/L Chloride 104.4 104.8 (98-107) mmol/L Carbon Dioxide 25 26 (22-30) mmol/L BUN 28 H 25 H (7-17) mg/dL Creatinine 1.1 0.8 (0.7-1.2) mg/dL Glucose 297 H 148 H (65-100) mg/dL Calcium 9.6 9.5 (8.4-10.2) mg/dL AST 17 (5-40) units/L ALT 14 (7-56) units/L Alkaline Phosphatase 78 (35-129) units/L Total Protein 7.5 (6.3-8.2) g/dL Albumin 4.1 (3.9-5) g/dL Assessment and Plan acute renal insufficecny ams possible near syncope htn chol dm cad rec: iv fluids, monitor sugars, cont asa and brilinta and add statin cont home bp meds and followup echo and carotids
[2018-09-30] MEDS: SODIUM CHLORIDE FLUSH SYRINGE 10 ML IV SCH ×2 (15:44→22:23)
[2018-09-30] MEDS: BRILINTA PO SCH (22:23)
[2018-10-01] MEDS: HumaLOG SUB-Q SCH ×3 (08:28→22:09)
[2018-10-01] MEDS: BRILINTA PO SCH ×2 (11:37→22:08)
[2018-10-01] MEDS: LOPRESSOR PO SCH ×2 (11:37→22:13)
[2018-10-01] MEDS: ZESTRIL PO SCH (11:38)
[2018-10-01] MEDS: BABY ASPIRIN PO SCH (11:38)
[2018-10-01] MEDS: NORVASC PO SCH (11:38)
[2018-10-01] MEDS: SODIUM CHLORIDE FLUSH SYRINGE 10 ML IV SCH ×2 (11:38→22:09)
--- NOTE | 2018-10-01 14:45 | Progress Note ---
Assessment and Plan Carotid duplex with no significant stenosis. Echo pending. Cont present cardiac management. The patient has been seen in conjunction with Dr. aZck Moyer who agrees with assessment and plan of care. - Patient Problems (1) Near syncope Current Visit: Yes Status: Acute (2) Altered mental status Current Visit: Yes Status: Acute (3) Hypoglycemia Current Visit: Yes Status: Suspected (4) Anemia Current Visit: Yes Status: Acute Qualifiers: Anemia type: unspecified type Qualified Code(s): D64.9 - Anemia, unspecified (5) CAD (coronary artery disease) Current Visit: Yes Status: Chronic Qualifiers: Coronary Disease-Associated Artery/Lesion type: [place] artery [place] vs. transplanted heart: [place] heart Associated angina: without angina Qualified Code(s): I25.10 - Atherosclerotic heart disease of [place] coronary artery without angina pectoris (6) Stented coronary artery Current Visit: No Status: Chronic (7) Hypertension Current Visit: Yes Status: Chronic Qualifiers: Hypertension type: essential hypertension Qualified Code(s): I10 - Essential (primary) hypertension (8) Diabetes mellitus Current Visit: Yes Status: Chronic Subjective Date of service: 10/01/18 Principal diagnosis: near syncope Interval history: pt resting in bed, states she is feeling better today, no current cardiac complaints. tele reviewed - in SR with no acute events noted overnight. Objective Last Vital Signs Temp 98.3 F 10/01/18 08:15 Pulse 53 L 10/01/18 08:15 Resp 18 10/01/18 08:15 BP 127/68 10/01/18 08:15 Pulse Ox 100 10/01/18 08:15 - Physical Examination General: No Apparent Distress HEENT: Positive: PERRL Neck: Positive: neck supple Cardiac: Positive: Reg Rate and Rhythm, S1/S2 Lungs: Positive: Decreased Breath Sounds Abdomen: Positive: Unremarkable Skin: Positive: Clear Musculoskeletal: Normal Range of Motion Extremities: Present: normal - Imaging and Cardiology EKG: image reviewed Stress echo: report reviewed (2018: No evidence of ischemia) Echo: report reviewed (2018: EF of 55 to 60%, no valvular abnormalities)
--- NOTE | 2018-10-02 06:39 | Progress Note ---
Assessment and Plan Assessment and plan: 62f w pmh of cad who pw near syncope dx near syncope cad htn dm plan carotid doppler neg, echo pending no events on tele -cardiology input appreciated tentative dc tomorrow if echo is neg History Interval history: Review of systems Constitutional: No fevers, no malaise, no joint pains CVS: No chest pain, no orthopnea, no dyspnea on exertion, no pedal edema GI: No abdominal pain, no diarrhea, no vomiting, no constipation Respiratory: no wheezing, no coughing Hospitalist Physical - Physical exam Narrative exam: General.: Appears well, no distress, nontoxic HEENT: Moist mucous membranes, extraocular muscles intact, no lymphadenopathy Neck: supple Cardiac: S1-S2 heard Lungs: clear to auscultation bilaterally Abdomen: soft , nontender, nondistended, bowel sounds positive Extremities: no edema clubbing or cyanosis Skin: no rash or lesions Neurologic: no gross focal deficits Psych: calm, and cooperative - Constitutional Vitals: Temp Pulse Resp BP Pulse Ox 98.5 F 54 L 16 123/64 100 10/02/18 04:10 10/02/18 04:10 10/02/18 04:10 10/02/18 04:10 10/02/18 04:10 General appearance: Present: no acute distress Results - Labs CBC & Chem 7: 09/30/18 09:43 09/30/18 09:43 Labs: Laboratory Last Values WBC 5.0 K/mm3 (4.5-11.0) 09/30/18 09:43 RBC 3.60 M/mm3 (3.65-5.03) L 09/30/18 09:43 Hgb 11.1 gm/dl (10.1-14.3) 09/30/18 09:43 Hct 33.1 % (30.3-42.9) 09/30/18 09:43 MCV 92 fl (79-97) 09/30/18 09:43 MCH 31 pg (28-32) 09/30/18 09:43 MCHC 34 % (30-34) 09/30/18 09:43 RDW 14.5 % (13.2-15.2) 09/30/18 09:43 Plt Count 197 K/mm3 (140-440) 09/30/18 09:43 Lymph % (Auto) 22.0 % (13.4-35.0) 09/30/18 09:43 [place] % (Auto) 8.7 % (0.0-7.3) H 09/30/18 09:43 Eos % (Auto) 2.0 % (0.0-4.3) 09/30/18 09:43 Baso % (Auto) 0.4 % (0.0-1.8) 09/30/18 09:43 Lymph # 1.1 K/mm3 (1.2-5.4) L 09/30/18 09:43 [place] # 0.4 K/mm3 (0.0-0.8) 09/30/18 09:43 Eos # 0.1 K/mm3 (0.0-0.4) 09/30/18 09:43 Baso # 0.0 K/mm3 (0.0-0.1) 09/30/18 09:43 Seg Neutrophils % 66.9 % (40.0-70.0) 09/30/18 09:43 Seg Neutrophils # 3.4 K/mm3 (1.8-7.7) 09/30/18 09:43 Sodium 143 mmol/L (137-145) 09/30/18 09:43 Potassium 4.0 mmol/L (3.6-5.0) 09/30/18 09:43 Chloride 104.8 mmol/L (98-107) 09/30/18 09:43 Carbon Dioxide 26 mmol/L (22-30) 09/30/18 09:43 16 mmol/L 09/30/18 09:43 BUN 25 mg/dL (7-17) H 09/30/18 09:43 0.8 mg/dL (0.7-1.2) 09/30/18 09:43 Estimated GFR > 60 ml/min 09/30/18 09:43 31 % 09/30/18 09:43 Glucose 148 mg/dL (65-100) H 09/30/18 09:43 POC Glucose 232 (70-105) H 10/01/18 20:38 6.8 % (4-6) H 09/30/18 09:43 Calcium 9.5 mg/dL (8.4-10.2) 09/30/18 09:43 0.40 mg/dL (0.1-1.2) 09/29/18 18:46 AST 17 units/L (5-40) 09/29/18 18:46 ALT 14 units/L (7-56) 09/29/18 18:46 78 units/L (35-129) 09/29/18 18:46 93 units/L (30-135) 09/30/18 09:43 CK-MB (CK-2) 2.3 ng/mL (0.0-4.0) 09/30/18 09:43 CK-MB (CK-2) Rel Index 2.4 (0-4) 09/30/18 09:43 < 0.010 ng/mL (0.00-0.029) 09/30/18 09:43 NT-Pro-B Natriuret Pep 436.0 pg/mL (0-900) 09/29/18 18:46 7.5 g/dL (6.3-8.2) 09/29/18 18:46 4.1 g/dL (3.9-5) 09/29/18 18:46 1.2 % 09/29/18 18:46 Blood Type O POSITIVE 09/29/18 20:10 Antibody Screen Negative 09/29/18 20:10 Crossmatch See Detail 09/29/18 20:10 Active Medications - Current Medications Current Medications: Generic Name Dose Route Start Last Admin Trade Name Freq PRN Reason Stop Dose Admin Acetaminophen 650 mg 09/29/18 23:26 Tylenol PO Q4H PRN Pain MILD(1-3)/Fever >100.5/BHATTI Amlodipine Besylate 10 mg 09/30/18 10:00 10/01/18 11:38 Norvasc PO 10 mg DAILY ISHAN Administration Aspirin 81 mg 09/30/18 10:00 10/01/18 11:38 Baby Aspirin PO 81 mg DAILY ISHAN Administration Atorvastatin Calcium 40 mg 09/30/18 22:00 10/01/18 22:08 Lipitor PO 40 mg QHS ISHAN Administration Dextrose 50 ml 09/30/18 06:02 D50w (25gm) Syringe IV PRN PRN Hypoglycemia Sodium Chloride 1,000 mls @ 75 mls/hr 09/30/18 02:00 Nacl 0.45% 1000 Ml IV DIRECT [facility] Insulin Human Lispro 0 unit 09/30/18 07:30 10/01/18 22:09 Humalog SUB-Q 3 unit ACHS ISHAN Administration Protocol Lisinopril 20 mg 09/30/18 10:00 10/01/18 11:38 Zestril PO 20 mg QDAY ISHAN Administration Metoprolol Tartrate 25 mg 09/30/18 10:00 10/01/18 22:13 Lopressor PO 25 mg BID ISHAN Administration Ondansetron HCl 4 mg 09/29/18 23:26 Zofran IV Q8H PRN Nausea And Vomiting Sodium Chloride 10 ml 09/30/18 10:00 10/01/18 22:09 Sodium Chloride Flush Syringe 10 Ml IV 10 ml BID ISHAN Administration Sodium Chloride 10 ml 09/29/18 23:26 Sodium Chloride Flush Syringe 10 Ml IV PRN PRN LINE FLUSH Ticagrelor 90 mg 09/30/18 22:00 10/01/18 22:08 Brilinta PO 90 mg BID ISHAN Administration Nutrition/Malnutrition Assess - Dietary Evaluation Nutrition/Malnutrition Findings: Nutrition Notes Start: 09/30/18 08:48 Freq: Status: Active Protocol: Document 09/30/18 08:48 CHERRY (Rec: 09/30/18 08:48 CHERRY [id number] [email or web address]) Nutrition Notes Need for Assessment generated from: component overhaul operator Initial or Follow up Brief Note Subjective/Other Information Pt screened for new onset of DM, however, pt with hx of DM. Will assess upon further consult or LOS.
[2018-10-02] MEDS: HumaLOG SUB-Q SCH ×2 (07:59→12:38)
[2018-10-02 11:24] VITALS: BP 143/69
[2018-10-02] MEDS: ZESTRIL PO SCH (11:24)
[2018-10-02] MEDS: BABY ASPIRIN PO SCH (11:25)
[2018-10-02] MEDS: NORVASC PO SCH (11:25)
[2018-10-02] MEDS: LOPRESSOR PO SCH (11:25)
[2018-10-02] MEDS: BRILINTA PO SCH (11:26)
--- NOTE | 2018-10-02 11:54 | Discharge Summary ---
Providers - Providers Date of Admission: 10/01/18 16:20 Date of discharge: 10/02/18 Attending physician: JOÃO WRIGHT 09/30/18 11:16 Consult to Physician [CONS] Routine Comment: Consulting Provider: AUDELIA ACEVES Physician Instructions: Reason For Exam: syncope Primary care physician: OPERATOR HELPER Hospitalization Condition: Stable Hospital course: Patient is a 62 yo woman with a history of hypertension, type 2 DM, CAD who presented with near syncope with exertion. She thought her blood glucose was low so she had a soda but she did not check her blood sugars. Hypoglycemia, was 82 on the day of admission: counseling done; she is on a sulfuylurea which is notorious for hypoglycemia if she doesn't eat properly. Anemia Near syncope Coronary artery disease Hypertension Diabetes mellitus type 2 Disposition: DC- TO HOME OR SELFCARE Time spent for discharge: 34 minutes Core Measure Documentation - Palliative Care Palliative Care/ Comfort Measures: Not Applicable - Core Measures Any of the following diagnoses?: none - VTE Discharge Requirements Deep Vein Thrombosis/Pulmonary Embolism Present on Admission: No Has pt received <5 days of overlap therapy or INR<2.0: No Anticoagulant overlap therapy prescribed at discharge: No Contraindication No Overlap Therapy order at DC: Not Indicated Exam - Physical Exam Narrative exam: Gen: WDWN, NAD, Awake, Alert, Orientated HEENT: NCAT, EOMI, PERRL, OP Clear Neck: supple, no adenopathy, no thyromegaly, no JVD CVS/Heart: RRR, normal S1S2, pulses present bilaterally Chest/Lungs: CTA B, Symmetrical chest expansion, good air entry bilaterally GI/Abdomen: soft, NTND, good bowel sounds, no guarding or rebound /Bladder: no suprapubic tenderness, no CVA or paraspinal tenderness Extermity/Skin: no c/c/e, no obvious rash MSK: FROM x 4 Neuro: CN 2-12 grossly intact, no new focal deficits Psych: calm - Constitutional Vitals: Temp Pulse Resp BP Pulse Ox 98.5 F 62 16 143/69 100 10/02/18 04:10 10/02/18 11:23 10/02/18 04:10 10/02/18 11:25 10/02/18 11:50 Plan Activity: no driving until cleared by PCP, other (no strenous activity unless cleared by PCP) Diet: low salt, diabetic Special Instructions: record blood sugar diary (three times a day and bedtime) Additional Instructions: Must eat Carbohydrates with Glucotrol/glipizide Follow up with: PRIMARY CARE, [Primary Care Provider] - 7 Days
--- NOTE | 2018-10-02 15:01 | Progress Note ---
Assessment and Plan Carotid duplex with no significant stenosis. Echo has not yet been done. Currently stable cardiac status. Pt may discharge home from cardiology standpoint and will plan for echo as OP. Recommend pt follow up in our office with Dr. Manning within 1-2 weeks of hospital discharge ([phone]). Pt verbalizes understanding. The patient has been seen in conjunction with Dr. Zack Moyer who agrees with assessment and plan of care. - Patient Problems (1) Near syncope Current Visit: Yes Status: Acute (2) Altered mental status Current Visit: Yes Status: Acute (3) Hypoglycemia Current Visit: Yes Status: Suspected (4) Anemia Current Visit: Yes Status: Acute Qualifiers: Anemia type: unspecified type Qualified Code(s): D64.9 - Anemia, unspecified (5) CAD (coronary artery disease) Current Visit: Yes Status: Chronic Qualifiers: Coronary Disease-Associated Artery/Lesion type: [place] artery [place] vs. transplanted heart: [place] heart Associated angina: without angina Qualified Code(s): I25.10 - Atherosclerotic heart disease of [place] coronary artery without angina pectoris (6) Stented coronary artery Current Visit: No Status: Chronic (7) Hypertension Current Visit: Yes Status: Chronic Qualifiers: Hypertension type: essential hypertension Qualified Code(s): I10 - Essential (primary) hypertension (8) Diabetes mellitus Current Visit: Yes Status: Chronic Subjective Date of service: 10/02/18 Principal diagnosis: near syncope Interval history: pt resting in bed, states she is feeling well, no current cardiac complaints. tele reviewed - in SR with no acute events noted overnight. Objective Last Vital Signs Temp 98.5 F 10/02/18 04:10 Pulse 62 10/02/18 11:23 Resp 16 10/02/18 04:10 BP 143/69 10/02/18 11:25 Pulse Ox 100 10/02/18 11:50 - Physical Examination General: No Apparent Distress HEENT: Positive: PERRL Neck: Positive: neck supple Cardiac: Positive: Reg Rate and Rhythm, S1/S2 Lungs: Positive: Decreased Breath Sounds Abdomen: Positive: Unremarkable Skin: Positive: Clear Musculoskeletal: Normal Range of Motion Extremities: Present: normal - Imaging and Cardiology EKG: image reviewed Stress echo: report reviewed (2018: No evidence of ischemia) Echo: report reviewed (2018: EF of 55 to 60%, no valvular abnormalities)
== END 2018-10-02 16:44 | disposition home or self-care (01) | DRG 639 ==
LOC: ED 18:29 → 4A 23:26 → OBSVTOIN 10-01 16:20
PROVIDERS: ADMIT Internal Medicine; ATTEND Internal Medicine
DX: E11.649 Type 2 diabetes mellitus with hypoglycemia without coma (principal); R55 Syncope and collapse; I10 Essential (primary) hypertension; D64.9 Anemia, unspecified; N28.9 Disorder of kidney and ureter, unspecified; I25.10 Atherosclerotic heart disease of native coronary artery without angina pectoris; I25.2 Old myocardial infarction; Z95.5 Presence of coronary angioplasty implant and graft; Z79.84 Long term (current) use of oral hypoglycemic drugs
CPT/HCPCS: 36415; 71046; 80048; 80053; 82550; 82553; 82962; 83036; 83880; 84484; 85025; 85027; 86850; 86900; 86901; 86920; 93005; 93010; 93880; G0378; A9270-GY; J0360; J1815; J7040

== ENCOUNTER 2020-09-09 01:47 | Emergency (ER) | payer OTHER ==
[2020-09-09] MEDS ORDERED: oxyCODONE /ACETAMINOPHEN 5-325MG TAB PO ONE (03:04)
[2020-09-09] MEDS ORDERED: IBUPROFEN 400 MG TAB PO ONE (03:04)
[2020-09-09] MEDS ORDERED: ONDANSETRON 4 MG ODT TAB PO ONE (03:04)
--- NOTE | 2020-09-09 04:04 | Emergency Department Report ---
ED General Adult HPI - General Chief complaint: Extremity Injury, Upper Stated complaint: SEVERE PAIN IN LEFT ARM Time Seen by Provider: 09/09/20 02:59 Source: patient Mode of arrival: Ambulatory Limitations: No Limitations - History of Present Illness Initial comments: Patient is a 64-year-old female with left wrist pain she states the left wrist pain has been going on for the last few weeks. Patient states the pain is severe she denies any increase intensity and moving it she is right-handed patient denies having any fever chills any nausea or vomiting any shortness of breath. Severity scale (0 -10): 7 - Related Data Home Medications Medication Instructions Recorded Confirmed Last Taken amLODIPine 10 mg PO DAILY 02/17/17 09/30/18 1 Day Ago ~09/29/18 lisinopriL [Zestril TAB] 20 mg PO QDAY 02/17/17 09/30/18 1 Day Ago ~09/29/18 Ticagrelor [Brilinta] 90 mg PO DAILY 09/29/18 09/30/18 1 Day Ago ~09/29/18 glipiZIDE [Glucotrol] 5 mg PO DAILY 09/29/18 09/30/18 1 Day Ago ~09/29/18 Previous Rx's Medication Instructions Recorded Last Taken Type Aspirin [Aspirin BABY CHEW TAB] 81 mg PO DAILY tab.chew 02/21/17 1 Day Ago Rx ~09/29/18 ISOSORBIDE MONOnitrate [Imdur ER] 30 mg PO QDAY #30 tablet 06/01/17 1 Day Ago Rx ~09/29/18 Metoprolol [Lopressor TAB] 25 mg PO BID #60 tablet 06/01/17 1 Day Ago Rx ~09/29/18 Acetaminophen 500 mg PO Q6HR PRN #30 capsule 09/09/20 Unknown Rx Allergies Allergy/AdvReac Type Severity Reaction Status Date / Time Penicillins Allergy Nausea Verified 09/29/18 18:30 ED Review of Systems ROS: Stated complaint: SEVERE PAIN IN LEFT ARM Other details as noted in HPI Constitutional: denies: chills, fever Eyes: denies: eye pain, eye discharge, vision change ENT: denies: ear pain, throat pain Respiratory: denies: cough, shortness of breath, wheezing Cardiovascular: denies: chest pain, palpitations Endocrine: no symptoms reported Gastrointestinal: denies: abdominal pain, nausea, diarrhea Genitourinary: denies: urgency, dysuria, discharge Musculoskeletal: as per HPI, joint swelling, arthralgia. denies: back pain Skin: denies: rash, lesions Neurological: denies: headache, weakness, paresthesias Psychiatric: denies: anxiety, depression Hematological/Lymphatic: denies: easy bleeding, easy bruising ED Past Medical Hx - Past Medical History Previous Medical History?: Yes Hx Hypertension: Yes (since 2014) Hx Heart Attack/AMI: Yes Hx Congestive Heart Failure: No Hx Diabetes: Yes (since 2003) Hx Asthma: No Hx COPD: No - Surgical History Past Surgical History?: Yes Hx Coronary Stent: Yes (X4) - Social History Smoking Status: Never Smoker Substance Use Type: None - Medications Home Medications: Home Medications Medication Instructions Recorded Confirmed Last Taken Type amLODIPine 10 mg PO DAILY 02/17/17 09/30/18 1 Day Ago History ~09/29/18 lisinopriL [Zestril TAB] 20 mg PO QDAY 02/17/17 09/30/18 1 Day Ago History ~09/29/18 Aspirin [Aspirin BABY CHEW TAB] 81 mg PO DAILY tab.chew 02/21/17 09/30/18 1 Day Ago Rx ~09/29/18 ISOSORBIDE MONOnitrate [Imdur ER] 30 mg PO QDAY #30 tablet 06/01/17 09/30/18 1 Day Ago Rx ~09/29/18 Metoprolol [Lopressor TAB] 25 mg PO BID #60 tablet 06/01/17 09/30/18 1 Day Ago Rx ~09/29/18 Ticagrelor [Brilinta] 90 mg PO DAILY 09/29/18 09/30/18 1 Day Ago History ~09/29/18 glipiZIDE [Glucotrol] 5 mg PO DAILY 09/29/18 09/30/18 1 Day Ago History ~09/29/18 Acetaminophen 500 mg PO Q6HR PRN #30 capsule 09/09/20 Unknown Rx ED Physical Exam - General Limitations: No Limitations General appearance: alert, in no apparent distress - Head Head exam: Present: atraumatic, normocephalic - Eye Eye exam: Present: normal appearance - ENT ENT exam: Present: mucous membranes moist - Neck Neck exam: Present: normal inspection - Respiratory Respiratory exam: Present: normal lung sounds bilaterally. Absent: respiratory distress - Cardiovascular Cardiovascular Exam: Present: regular rate, normal rhythm. Absent: systolic murmur, diastolic murmur, rubs, gallop - GI/Abdominal GI/Abdominal exam: Present: soft, normal bowel sounds - Extremities Exam Extremities exam: Present: normal inspection - Back Exam Back exam: Present: normal inspection - Neurological Exam Neurological exam: Present: alert, oriented X3 - Psychiatric Psychiatric exam: Present: normal affect, normal mood - Skin Skin exam: Present: warm, dry, intact, normal color. Absent: rash ED Course Vital Signs 09/09/20 09/09/20 01:51 03:13 Temperature 100.9 F H Pulse Rate 64 Respiratory 18 18 Rate Blood Pressure 137/68 O2 Sat by Pulse 97 Oximetry ED Medical Decision Making - Radiology Data Radiology results: report reviewed, image reviewed Wrist x-ray: Shows no acute osseous injury - Medical Decision Making Chief medical diagnosis: Osteoarthritis of wrist Differential medical diagnosis: Wrist fracture, pseudoosteo arthritis arthritis I will get x-rays of wrist oral pain medicine and I will discharge patient home Critical care attestation.: If time is entered above; I have spent that time in minutes in the direct care of this critically ill patient, excluding procedure time. ED Disposition Clinical Impression: Left wrist pain Disposition: DC-01 TO HOME OR SELFCARE Is pt being admited?: No Does the pt Need Aspirin: No Condition: Stable Instructions: Wrist Pain, Adult, [id number] Prescriptions: Acetaminophen 500 mg PO Q6HR PRN #30 capsule PRN Reason: Pain , Severe (7-10) Referrals: [facility] [Other] - 3-5 Days
--- NOTE | 2020-09-09 04:19 | XRay Report ---
LEFT WRIST 3 VIEWS 0348 INDICATION: wrist pain COMPARISON: None available. FINDINGS: No fractures or dislocations are seen. Lateral arthritic changes are noted. Signer Name: Juan Pablo King MD Signed: 09/09/2020 4:15 AM Workstation Name: [id number]
[2020-09-09 05:12] VITALS: BP 136/60
== END 2020-09-09 05:20 | disposition home or self-care (01) ==
LOC: ED 01:47
DX: M25.532 Pain in left wrist (principal); I10 Essential (primary) hypertension; Z98.890 Other specified postprocedural states; Z95.818 Presence of other cardiac implants and grafts; Z88.0 Allergy status to penicillin; Z79.82 Long term (current) use of aspirin; Z79.899 Other long term (current) drug therapy
CPT/HCPCS: 99283; Q0162

== ENCOUNTER 2020-09-13 12:05 | Inpatient (IN) | payer OTHER ==
--- NOTE | 2020-09-13 12:12 | Emergency Department Report ---
Blank Doc - Documentation Documentation: 65-year-old female that presents with shortness of breath and nausea. Patient has been in close contact with son that is diagnosed with Covid. Patient does have a extensive history of cardiac. 1- This initial assessment/diagnostic orders/clinical plan/ treatment(s) is/are subject to change based on pt's health status, clinical progression and re- assessment by fellow clinical providers in the ED. Further treatment and workup at subsequent clinical provers discretion. Patient/guardians urged not to elope from ED as their condition may be serious if not clinically assessed and managed. 2-cardiac work-up
--- NOTE | 2020-09-13 12:43 | XRay Report ---
CHEST 2 VIEWS INDICATION / CLINICAL INFORMATION: Chest Pain. COMPARISON: None available. FINDINGS: SUPPORT DEVICES: None. HEART / MEDIASTINUM: The heart size is borderline. Pulmonary vasculature is normal. LUNGS / PLEURA: There are mild to moderate patchy peripheral parenchymal opacities in both mid to low er lung zones. No pleural effusion. No pneumothorax. ADDITIONAL FINDINGS: No significant additional findings. IMPRESSION: [id number] patchy peripheral parenchymal opacities in both mid to lower lung zones are nonspecific. Atypical causes of pneumonia, including viral pneumonia, should be considered Signer Name: Ren Cooney MD Signed: 09/13/2020 12:39 PM Workstation Name: [id number]
[2020-09-13] MEDS ORDERED: ONDANSETRON 4 MG/2 ML INJ IV ONE (13:02)
[2020-09-13] MEDS ORDERED: dexAMETHasone 4 MG/ML VIAL IV ONE (13:02)
[2020-09-13] MEDS ORDERED: SODIUM CHLORIDE 0.9% 1000 ML 1,000 ML IV ONE (13:02)
--- NOTE | 2020-09-13 13:02 | Emergency Department Report ---
ED Shortness of Breath HPI - General Chief Complaint: Chest Pain Stated Complaint: SOB/NAUSEA Time Seen by Provider: 09/13/20 12:10 Source: patient Mode of arrival: Wheelchair Limitations: No Limitations - History of Present Illness Initial Comments: Patient is 64 years old female with history of hypertension diabetes. Patient presented to the ER complaining of shortness of breath, cough and chills for the last 7 days. Patient also complaining of nausea and vomiting and stating that she is unable to keep anything down. Patient stated that her son admitted to this hospital for COVID-19 2 days ago. Patient denied any chest pain, abdominal pain, focal weakness numbness or tingling sensation. Patient denied receiving any COVID-19 vaccines. MD Complaint: shortness of breath, cough - Related Data Home Medications Medication Instructions Recorded Confirmed Last Taken amLODIPine 10 mg PO DAILY 02/17/17 09/30/18 1 Day Ago ~09/29/18 lisinopriL [Zestril TAB] 20 mg PO QDAY 02/17/17 09/30/18 1 Day Ago ~09/29/18 Ticagrelor [Brilinta] 90 mg PO DAILY 09/29/18 09/30/18 1 Day Ago ~09/29/18 glipiZIDE [Glucotrol] 5 mg PO DAILY 09/29/18 09/30/18 1 Day Ago ~09/29/18 Previous Rx's Medication Instructions Recorded Last Taken Type Aspirin [Aspirin BABY CHEW TAB] 81 mg PO DAILY tab.chew 02/21/17 1 Day Ago Rx ~09/29/18 ISOSORBIDE MONOnitrate [Imdur ER] 30 mg PO QDAY #30 tablet 06/01/17 1 Day Ago Rx ~09/29/18 Metoprolol [Lopressor TAB] 25 mg PO BID #60 tablet 06/01/17 1 Day Ago Rx ~09/29/18 Acetaminophen 500 mg PO Q6HR PRN #30 capsule 09/09/20 Unknown Rx Allergies Allergy/AdvReac Type Severity Reaction Status Date / Time Penicillins Allergy Nausea Verified 09/29/18 18:30 ED Review of Systems ROS: Stated complaint: SOB/NAUSEA Other details as noted in HPI Comment: All other systems reviewed and negative Constitutional: chills. denies: fever Respiratory: cough, shortness of breath, SOB with exertion, SOB at rest. denies: wheezing Cardiovascular: denies: chest pain, palpitations Gastrointestinal: nausea, vomiting. denies: abdominal pain, diarrhea Musculoskeletal: denies: back pain Neurological: weakness. denies: headache, numbness, paresthesias, confusion ED Past Medical Hx - Past Medical History Previous Medical History?: Yes Hx Hypertension: Yes (since 2014) Hx Heart Attack/AMI: Yes Hx Congestive Heart Failure: No Hx Diabetes: Yes (since 2003) Hx Asthma: No Hx COPD: No - Surgical History Hx Coronary Stent: Yes (X4) - Social History Smoking Status: Never Smoker Substance Use Type: None - Medications Home Medications: Home Medications Medication Instructions Recorded Confirmed Last Taken Type amLODIPine 10 mg PO DAILY 02/17/17 09/30/18 1 Day Ago History ~09/29/18 lisinopriL [Zestril TAB] 20 mg PO QDAY 02/17/17 09/30/18 1 Day Ago History ~09/29/18 Aspirin [Aspirin BABY CHEW TAB] 81 mg PO DAILY tab.chew 02/21/17 09/30/18 1 Day Ago Rx ~09/29/18 ISOSORBIDE MONOnitrate [Imdur ER] 30 mg PO QDAY #30 tablet 06/01/17 09/30/18 1 Day Ago Rx ~09/29/18 Metoprolol [Lopressor TAB] 25 mg PO BID #60 tablet 06/01/17 09/30/18 1 Day Ago Rx ~09/29/18 Ticagrelor [Brilinta] 90 mg PO DAILY 09/29/18 09/30/18 1 Day Ago History ~09/29/18 glipiZIDE [Glucotrol] 5 mg PO DAILY 09/29/18 09/30/18 1 Day Ago History ~09/29/18 Acetaminophen 500 mg PO Q6HR PRN #30 capsule 09/09/20 Unknown Rx ED Physical Exam - General Limitations: No Limitations General appearance: alert, in no apparent distress - Head Head exam: Present: atraumatic, normocephalic, normal inspection - Eye Eye exam: Present: normal appearance - ENT ENT exam: Present: mucous membranes dry - Neck Neck exam: Present: normal inspection, full ROM. Absent: tenderness, meningismus - Respiratory Respiratory exam: Present: rales, decreased breath sounds. Absent: respiratory distress - Cardiovascular Cardiovascular Exam: Present: regular rate, normal rhythm, normal heart sounds - GI/Abdominal GI/Abdominal exam: Present: soft, normal bowel sounds. Absent: distended, tenderness, guarding, rebound, rigid, organomegaly, mass, bruit, pulsatile mass, hernia - Extremities Exam Extremities exam: Present: normal inspection, full ROM, normal capillary refill. Absent: tenderness - Back Exam Back exam: Present: normal inspection, full ROM. Absent: CVA tenderness (R), CVA tenderness (L) - Neurological Exam Neurological exam: Present: alert, oriented X3, CN II-XII intact - Psychiatric Psychiatric exam: Present: normal mood - Skin Skin exam: Present: warm, intact, normal color ED Course Vital Signs 09/13/20 12:07 Pulse Rate 98 H Respiratory 18 Rate Blood Pressure 162/74 [Right] O2 Sat by Pulse 98 Oximetry ED Medical Decision Making - EKG Data -: EKG Interpreted by Me EKG shows normal: sinus rhythm Rate: normal - EKG Data Interpretation: no acute changes - Radiology Data Radiology results: report reviewed - Medical Decision Making Patient is 64 years old female with history of hypertension diabetes. Patient presented to the ER complaining of shortness of breath, cough and chills for the last 7 days. Patient also complaining of nausea and vomiting and stating that she is unable to keep anything down. Patient stated that her son admitted to this hospital for COVID-19 2 days ago. Patient denied any chest pain, abdominal pain, focal weakness numbness or tingling sensation. Patient denied receiving any COVID-19 vaccines. EKG is unremarkable. Chest x-ray showed bilateral patchy infiltrates consistent with pneumonia. Patient received Levaquin, Decadron and Zofran. COVID-19 test has been ordered. I discussed patient with Dr. Torrez, he agreed to admit the patient to medical service for further management. Critical care attestation.: If time is entered above; I have spent that time in minutes in the direct care of this critically ill patient, excluding procedure time. ED Disposition Clinical Impression: Bilateral pneumonia, Suspected COVID-19 virus infection, Acute nausea with nonbilious vomiting Disposition: OP ADMIT IP TO THIS HOSP Is pt being admited?: Yes Condition: Stable Instructions: Bacterial Pneumonia (ED) Referrals: PRIMARY CARE, [Primary Care Provider] - 3-5 Days
--- NOTE | 2020-09-13 13:05 | History and Physical Report ---
History of Present Illness Chief complaint: It is hard to breathe History of present illness: 64 YO Female with HTN, PR, DM, CAD S/P Stent placement presents to ED for evaluation. Pt reports "Its is hard to breathe". Patient states that she has experienced shortness of breath, fatigue, malaise, muscle aches, dyspnea on exertion, nausea, and generalized weakness over the past week with persistently worsening symptoms over the same timeframe. Patient transported to [facility] via private vehicle for further care and evaluation of the aforementioned symptoms. The patient was seen and evaluated in the emergency department. All lab and imaging studies reviewed. The patient was found to have a pulse oximetry of 87% on room air which is consistent with acute hypoxemic respiratory failure. The patient underwent chest x-ray which was found to show evidence of pneumonia. The patient was admitted to the medical floor and initiated on pneumonia as well as coronavirus protocols. Patient denies fever, chills, chest pain, palpitation, skin rash, or recent ill contacts. Patient knowledges known exposure to coronavirus during the past week. Prior admission on 10-01-18 reviewed. All medication listed at time of admission has been reconciled. Advanced care planning conducted in the emergency department. Past History Past Medical History: acute PR, CAD, diabetes, hypertension Past Surgical History: Other (Cardiac stent placement) Social history: , lives with family. denies: smoking, alcohol abuse, prescription drug abuse Family history: diabetes, hypertension Medications and Allergies Allergies Allergy/AdvReac Type Severity Reaction Status Date / Time Penicillins Allergy Nausea Verified 09/29/18 18:30 Home Medications Medication Instructions Recorded Confirmed Last Taken Type amLODIPine 10 mg PO DAILY 02/17/17 09/13/20 09/12/20 History lisinopriL [Zestril TAB] 20 mg PO QDAY 02/17/17 09/13/20 09/12/20 History Aspirin [Aspirin BABY CHEW TAB] 81 mg PO DAILY tab.chew 02/21/17 09/13/20 09/12/20 Rx ISOSORBIDE MONOnitrate [Imdur ER] 30 mg PO QDAY #30 tablet 06/01/17 09/13/20 09/12/20 Rx Metoprolol [Lopressor TAB] 25 mg PO BID #60 tablet 06/01/17 09/13/20 09/12/20 Rx Ticagrelor [Brilinta] 90 mg PO DAILY 09/29/18 09/13/20 09/12/20 History glipiZIDE [Glucotrol] 5 mg PO DAILY 09/29/18 09/13/20 09/12/20 History Acetaminophen 500 mg PO Q6HR PRN #30 capsule 09/09/20 09/13/20 09/13/20 Rx Active Meds: Active Medications Levofloxacin/Dextrose (Levaquin 500mg/100ml) 500 mg in 100 mls @ 100 mls/hr IV ONCE ONE; Protocol Stop: 09/13/20 13:57 Sodium Chloride (Nacl 0.9% 1000 Ml) 1,000 mls @ 999 mls/hr IV BOLUS ONE Stop: 09/13/20 14:02 Review of Systems Constitutional: fatigue, malaise, no weight loss, no weight gain, no fever, no chills Ears, nose, mouth and throat: no ear pain, no tinnitis, no decreased hearing, no nasal discharge Breasts: no change in shape, no swelling, no mass Cardiovascular: shortness of breath, dyspnea on exertion, no chest pain, no orthopnea Respiratory: cough, shortness of breath, dyspnea on exertion Gastrointestinal: nausea, no abdominal pain, no diarrhea, no constipation, no change in bowel habits Genitourinary Female: no pelvic pain, no flank pain, no dysuria, no urinary frequency, no urgency Rectal: no pain, no incontinence, no bleeding Musculoskeletal: no neck stiffness, no neck pain, no shooting arm pain, no arm numbness/tingling, no low back pain, no shooting leg pain, no leg numbness/tingling Integumentary: no rash, no pruritis, no redness, no sores, no jaundice Neurological: no paralysis, no weakness, no parathesias, no numbness, no tingling, no seizures Psychiatric: no anxiety, no memory loss, no change in sleep habits, no insomnia, no hypersomnia, no suicidal ideation Endocrine: no cold intolerance, no polyphagia, no excessive thirst, no polydipsia, no excessive sweating, no weight change Hematologic/Lymphatic: no easy bruising, no easy bleeding, no lymphadenopathy Allergic/Immunologic: no urticaria, no allergic rhinitis, no anaphylaxis, no angioedema Exam - Constitutional Vitals: Temp Pulse Resp BP Pulse Ox 98 H 18 162/74 98 05/30/21 12:07 09/13/20 12:07 09/13/20 12:07 09/13/20 12:07 General appearance: Present: mild distress - EENT Eyes: Present: PERRL ENT: hearing intact, clear oral mucosa - Neck Neck: Present: supple, normal ROM - Respiratory Respiratory effort: labored, accessory muscle use, stridor Respiratory: bilateral: diminished, rhonchi - Cardiovascular Heart Sounds: Present: S1 & S2. Absent: rub, click - Extremities Extremities: pulses symmetrical, No edema Peripheral Pulses: within normal limits - Abdominal General gastrointestinal: Present: soft, non-tender, non-distended, normal bowel sounds Female genitourinary: Present: normal - Integumentary Integumentary: Present: clear, warm, dry - Musculoskeletal Musculoskeletal: generalized weakness - Psychiatric Psychiatric: appropriate mood/affect, intact judgment & insight - Neurologic Neurologic: CNII-XII intact, moves all extremities Results - Labs CBC & Chem 7: 09/13/20 12:33 09/13/20 13:03 Assessment and Plan - Patient Problems (1) Acute hypoxemic respiratory failure Current Visit: Yes Status: Acute Plan to address problem: Supplemental oxygen, pulse oximetry, nebulizer therapy, prone positioning while in bed, chest x-ray. (2) Bilateral pneumonia Current Visit: Yes Status: Acute Plan to address problem: Pneumonia protocol: Chest x-ray, CBC, CMP, IV antibiotic therapy, blood culture, supplemental oxygen, pulse oximetry. (3) Suspected COVID-19 virus infection Current Visit: Yes Status: Acute Plan to address problem: Coronavirus protocol: Contact precaution, isolation precautions, IV steroid therapy, IV antibiotic therapy, prophylactic anticoagulation, vitamin C therapy, vitamin D therapy, zinc therapy, (4) Diabetes mellitus Current Visit: No Status: Chronic Plan to address problem: Consistent carbohydrate diet, insulin protocol, Accu-Chek, hypoglycemia protocol (5) Hypertension Current Visit: No Status: Chronic Qualifiers: Hypertension type: essential hypertension Qualified Code(s): I10 - Essential (primary) hypertension Plan to address problem: Monitor blood pressure every shift, continue medical management. (6) DVT prophylaxis Current Visit: Yes Status: Acute Plan to address problem: SCD to bilateral lower extremities while in bed, prophylactic anticoagulation (7) Advance care planning Current Visit: Yes Status: Acute Plan to address problem: Disease education conducted, care plan discussed, diagnosis discussed, prognosis discussed, patient is full code, patient knowledges understanding and agreement with care plan, +30 minutes.
[2020-09-13] MEDS ORDERED: ONDANSETRON 4 MG/2 ML INJ IV PRN (13:07)
[2020-09-13] MEDS ORDERED: ACETAMINOPHEN 325 MG TAB PO PRN (13:07)
[2020-09-13] MEDS ORDERED: ALBUTEROL 2.5 MG/3 ML NEBU IH PRN (13:07)
[2020-09-13 13:21] LABS: Basophils % (Auto) 0.5 % (0.0-1.8); Eosinophils % (Auto) 0.5 % (0.0-4.3); Hematocrit 34.8 % (30.3-42.9); Hemoglobin 12.2 gm/dl (10.1-14.3); Lymphocytes # (Auto) 0.6 K/mm3 (1.2-5.4); Lymphocytes % (Auto) 15.7 % (13.4-35.0); Mean Corpuscular HGB Conc 35 % (30-34); Mean Corpuscular Volume 90 fl (79-97); Monocytes # (Auto) 0.3 K/mm3 (0.0-0.8); Platelet Count 200 K/mm3 (140-440); Red Blood Count 3.88 M/mm3 (3.65-5.03); Red Cell Distribution Width 13.9 % (13.2-15.2)
[2020-09-13] MEDS ORDERED: DEXTROSE 50% IN WATER (25GM) 50 ML SYRINGE IV PRN (13:28)
[2020-09-13 13:33] LABS: INR 0.94 (0.87-1.13); Partial Thromboplastin Time 28.1 Sec. (24.2-36.6)
[2020-09-13 13:40] LABS: C-Reactive Protein 3.4 mg/dL (0.00-1.30)
[2020-09-13 13:41] LABS: Alanine Aminotransferase 10 units/L (7-56); Albumin 3.8 g/dL (3.9-5); BUN/Creatinine Ratio 26; Blood Urea Nitrogen 26 mg/dL (7-17); Calcium 8.6 mg/dL (8.4-10.2); Hemolysis Index 12
[2020-09-13] MEDS: AZITHROMYCIN/NS 500 MG/250 ML 500 MG/250 ML BAG IV SCH (15:00)
[2020-09-13] MEDS: methylPREDNISolone Sod Succinate 40 MG/1 ML INJ IV SCH ×2 (17:50→22:09)
[2020-09-13] MEDS: INSULIN LISPRO 100 UNIT/ML SUB-Q SCH ×2 (18:32→22:08)
[2020-09-13 20:13] LABS: Bilirubin,Urine NEG (Negative); Blood,Urine NEG (Negative); Color,Urine Yellow (Yellow); Mucus,Urine FEW /HPF; Urobilinogen,Urine < 2.0 mg/dL (<2.0)
[2020-09-13] MEDS: HEPARIN 5,000 UNIT/1 ML VIAL SUB-Q SCH (22:08)
[2020-09-13] MEDS: ZINC SULFATE 220 MG CAP PO SCH (22:09)
[2020-09-13] MEDS: ASCORBIC ACID 500 MG TAB PO SCH (22:09)
[2020-09-13] MEDS: METOPROLOL TARTRATE 25 MG TAB PO SCH (22:09)
[2020-09-14] MEDS: methylPREDNISolone Sod Succinate 40 MG/1 ML INJ IV SCH ×3 (05:28→21:24)
[2020-09-14 06:09] LABS: Basophils % (Auto) 0.3 % (0.0-1.8); Hematocrit 35.1 % (30.3-42.9); Hemoglobin 12.2 gm/dl (10.1-14.3); Lymphocytes # (Auto) 0.5 K/mm3 (1.2-5.4); Lymphocytes % (Auto) 17.6 % (13.4-35.0); Mean Corpuscular HGB Conc 35 % (30-34); Mean Corpuscular Volume 89 fl (79-97); Monocytes # (Auto) 0.1 K/mm3 (0.0-0.8); Monocytes % (Auto) 2.8 % (0.0-7.3); Platelet Count 219 K/mm3 (140-440); Red Blood Count 3.93 M/mm3 (3.65-5.03); Red Cell Distribution Width 13.4 % (13.2-15.2)
[2020-09-14 06:28] LABS: Alanine Aminotransferase 9 units/L (7-56); Albumin 3.7 g/dL (3.9-5); BUN/Creatinine Ratio 31; Blood Urea Nitrogen 28 mg/dL (7-17); Calcium 8.4 mg/dL (8.4-10.2); Hemolysis Index 0
[2020-09-14] MEDS: INSULIN LISPRO 100 UNIT/ML SUB-Q SCH ×4 (07:52→23:18)
--- NOTE | 2020-09-14 10:40 | Progress Note ---
Assessment and Plan Assessment and plan: -- Acute hypoxemic respiratory failure Current Visit: Yes Status: Acute Requiring supplemental oxygen, pulse oximetry, nebulizer therapy, prone positioning while in bed, chest x-ray. -- Bilateral pneumonia Current Visit: Yes Status: Acute Empiric antibiotics, follow cultures Check procalcitonin, adjust as needed -- Suspected COVID-19 virus infection Current Visit: Yes Status: Acute Isolation precautions, quach PCR requested Inflammatory markers, ID -- Diabetes mellitus Current Visit: No Status: Chronic Consistent carbohydrate diet, Accu-Chek sliding scale coverage hypoglycemia protocol --Hypertension Current Visit: No Status: Chronic Continue current antihypertensives and as needed medications --DVT prophylaxis Current Visit: Yes Status: Acute SCD to bilateral lower extremities while in bed, prophylactic anticoagulation --Advance care planning/full CODE STATUS Current Visit: Yes Status: Acute Closely monitor the patient and adjust the management as needed. Plan of care reviewed with the patient and her nurse evaluation if needed closely monitor the patient and adjust management as needed History Interval history: I have seen and examined the patient at the bedside Patient's chart and medications reviewed Patient complains of generalized weakness and fatigue COVID-19 test is pending Denies nausea vomiting abdominal pain Vital signs noted Hospitalist Physical - Constitutional Vitals: Temp Pulse Resp BP Pulse Ox 97.8 F 64 16 179/74 96 09/14/20 04:37 09/14/20 04:37 09/14/20 04:37 09/14/20 04:37 09/14/20 04:37 General appearance: Present: mild distress, well-nourished - EENT Eyes: Present: PERRL, EOM intact - Neck Neck: Present: supple, normal ROM - Respiratory Respiratory effort: normal Respiratory: bilateral: diminished, negative: rales, rhonchi, wheezing - Cardiovascular Rhythm: regular Heart Sounds: Present: S1 & S2 - Extremities Extremities: no ischemia, No edema - Abdominal General gastrointestinal: soft, non-tender, non-distended, normal bowel sounds - Integumentary Integumentary: Present: clear, warm - Psychiatric Psychiatric: appropriate mood/affect, cooperative - Neurologic Neurologic: CNII-XII intact, moves all extremities HEART Score - HEART Score Troponin: Troponin T < 0.010 ng/mL (0.00-0.029) 09/13/20 14:49 Results - Labs CBC & Chem 7: 09/14/20 05:34 09/14/20 05:34 Labs: Laboratory Last Values WBC 2.7 K/mm3 (4.5-11.0) L 09/14/20 05:34 RBC 3.93 M/mm3 (3.65-5.03) 09/14/20 05:34 Hgb 12.2 gm/dl (10.1-14.3) 09/14/20 05:34 Hct 35.1 % (30.3-42.9) 09/14/20 05:34 MCV 89 fl (79-97) 09/14/20 05:34 MCH 31 pg (28-32) 09/14/20 05:34 MCHC 35 % (30-34) H 09/14/20 05:34 RDW 13.4 % (13.2-15.2) 09/14/20 05:34 Plt Count 219 K/mm3 (140-440) 09/14/20 05:34 Lymph % (Auto) 17.6 % (13.4-35.0) 09/14/20 05:34 [place] % (Auto) 2.8 % (0.0-7.3) 09/14/20 05:34 Eos % (Auto) 0.0 % (0.0-4.3) 09/14/20 05:34 Baso % (Auto) 0.3 % (0.0-1.8) 09/14/20 05:34 Lymph # (Auto) 0.5 K/mm3 (1.2-5.4) L 09/14/20 05:34 [place] # (Auto) 0.1 K/mm3 (0.0-0.8) 09/14/20 05:34 Eos # (Auto) 0.0 K/mm3 (0.0-0.4) 09/14/20 05:34 Baso # (Auto) 0.0 K/mm3 (0.0-0.1) 09/14/20 05:34 Seg Neutrophils % 79.3 % (40.0-70.0) H 09/14/20 05:34 Seg Neutrophils # 2.2 K/mm3 (1.8-7.7) 09/14/20 05:34 PT 12.5 Sec. (12.2-14.9) 09/13/20 12:33 INR 0.94 (0.87-1.13) 09/13/20 12:33 APTT 28.1 Sec. (24.2-36.6) 09/13/20 12:33 D-Dimer 291.36 ng/mlDDU (0-234) H 09/13/20 12:33 Sodium 140 mmol/L (137-145) 09/14/20 05:34 Potassium 4.2 mmol/L (3.6-5.0) 09/14/20 05:34 Chloride 104.0 mmol/L (98-107) 09/14/20 05:34 Carbon Dioxide 24 mmol/L (22-30) 09/14/20 05:34 Anion Gap 16 mmol/L 09/14/20 05:34 BUN 28 mg/dL (7-17) H 09/14/20 05:34 Creatinine 0.9 mg/dL (0.6-1.2) 09/14/20 05:34 Estimated GFR > 60 ml/min 09/14/20 05:34 BUN/Creatinine Ratio 31 % 09/14/20 05:34 Glucose 219 mg/dL (65-100) H 09/14/20 05:34 POC Glucose 260 mg/dL (70-105) H 09/13/20 21:03 Calcium 8.4 mg/dL (8.4-10.2) 09/14/20 05:34 Magnesium 2.20 mg/dL (1.7-2.3) 09/13/20 12:33 Ferritin 302.7 ng/mL (10.0-200.0) H 09/13/20 13:03 Total Bilirubin 0.30 mg/dL (0.1-1.2) 09/14/20 05:34 AST 17 units/L (5-40) 09/14/20 05:34 ALT 9 units/L (7-56) 09/14/20 05:34 Alkaline Phosphatase 60 units/L (35-129) 09/14/20 05:34 Lactate Dehydrogenase 263 units/L (91-180) H 09/13/20 13:03 Troponin T < 0.010 ng/mL (0.00-0.029) 09/13/20 14:49 C-Reactive Protein 3.40 mg/dL (0.00-1.30) H 09/13/20 13:03 Total Protein 7.3 g/dL (6.3-8.2) 09/14/20 05:34 Albumin 3.7 g/dL (3.9-5) L 09/14/20 05:34 Albumin/Globulin Ratio 1.0 % 09/14/20 05:34 Procalcitonin < 0.05 ng/mL (<0.15) 09/13/20 13:03 Urine Color Yellow (Yellow) 09/13/20 Unknown Urine Turbidity Clear (Clear) 09/13/20 Unknown Urine pH 5.0 (5.0-7.0) 09/13/20 Unknown Ur Specific [place] 1.019 (1.003-1.030) 09/13/20 Unknown Urine Protein 100 mg/dl mg/dL (Negative) 09/13/20 Unknown Urine Glucose (UA) 50 mg/dL (Negative) 09/13/20 Unknown Urine Ketones 20 mg/dL (Negative) 09/13/20 Unknown Urine Blood Neg (Negative) 09/13/20 Unknown Urine Nitrite Neg (Negative) 09/13/20 Unknown Urine Bilirubin Neg (Negative) 09/13/20 Unknown Urine Urobilinogen < 2.0 mg/dL (<2.0) 09/13/20 Unknown Ur Leukocyte Esterase Neg (Negative) 09/13/20 Unknown Urine WBC (Auto) 2.0 /HPF (0.0-6.0) 09/13/20 Unknown Urine RBC (Auto) 2.0 /HPF (0.0-6.0) 09/13/20 Unknown U Epithel Cells (Auto) 2.0 /HPF (0-13.0) 09/13/20 Unknown Urine Mucus Few /HPF 09/13/20 Unknown Microbiology: Microbiology 09/13/20 13:12 Peripheral/Venous Blood Culture - Preliminary Culture in Progress 09/13/20 13:08 Peripheral/Venous Blood Culture - Preliminary Culture in Progress Smith/IV: Voiding Method Toilet Active Medications - Current Medications Current Medications: Generic Name Dose Route Start Last Admin Trade Name Freq PRN Reason Stop Dose Admin Acetaminophen 650 mg 09/13/20 13:07 Acetaminophen 325 Mg Tab PO Q4H PRN Pain MILD(1-3)/Fever >100.5/BHATTI Albuterol 2.5 mg 09/13/20 13:07 Albuterol 2.5 Mg/3 Ml Nebu IH Q4HRT PRN Shortness Of Breath Amlodipine Besylate 10 mg 09/14/20 10:00 Amlodipine 10 Mg Tab PO DAILY [facility] Ascorbic Acid 500 mg 09/13/20 22:00 09/13/20 22:09 Ascorbic Acid 500 Mg Tab PO 500 mg BID ISHAN Administration Aspirin 81 mg 09/14/20 10:00 Aspirin 81 Mg Tab Chew PO DAILY [facility] Cholecalciferol 1,000 unit 09/14/20 10:00 Cholecalciferol (Vit D3) 1000 Unit (25 Mcg) Tab PO QDAY [facility] Dextrose 50 ml 09/13/20 13:28 Dextrose 50% In Water (25gm) 50 Ml Syringe IV Q30MIN PRN Hypoglycemia Protocol Heparin Sodium (Porcine) 5,000 unit 09/13/20 22:00 09/13/20 22:08 Heparin 5,000 Unit/1 Ml Vial SUB-Q 5,000 unit Q12HR [facility] Administration Azithromycin 500 mg in 250 mls @ 250 mls/hr 09/13/20 14:00 09/13/20 15:00 Zithromax/Ns IV 250 mls/hr Q24H ISHAN Administration Protocol Insulin Human Lispro 0 unit 09/13/20 16:30 09/14/20 07:52 Insulin Lispro 100 Unit/Ml SUB-Q 4 unit ACHS [facility] Administration Protocol Isosorbide Mononitrate 30 mg 09/14/20 10:00 Isosorbide Mononitrate Er 30 Mg Tab PO QDAY [facility] Lisinopril 20 mg 09/14/20 10:00 Lisinopril 20 Mg Tab PO QDAY [facility] Methylprednisolone Sodium Succinate 40 mg 09/13/20 14:00 09/14/20 05:28 Methylprednisolone Sod Succinate 40 Mg/1 Ml Inj IV 40 mg Q8HR ISHAN Administration Metoprolol Tartrate 25 mg 09/13/20 22:00 09/13/20 22:09 Metoprolol Tartrate 25 Mg Tab PO 25 mg BID [facility] Administration Ondansetron HCl 4 mg 09/13/20 13:07 Ondansetron 4 Mg/2 Ml Inj IV Q8H PRN Nausea And Vomiting Sodium Chloride 10 ml 09/13/20 22:00 09/13/20 22:09 Sodium Chloride 0.9% 10 Ml Flush Syringe IV 10 ml BID ISHAN Administration Sodium Chloride 10 ml 09/13/20 13:07 Sodium Chloride 0.9% 10 Ml Flush Syringe IV PRN PRN LINE FLUSH Ticagrelor 90 mg 09/14/20 10:00 Ticagrelor 90 Mg Tab PO DAILY ISHAN Zinc Sulfate 220 mg 09/13/20 22:00 09/13/20 22:09 Zinc Sulfate 220 Mg Cap PO 220 mg BID ISHAN Administration Nutrition/Malnutrition Assess - Dietary Evaluation Nutrition/Malnutrition Findings: Nutrition Notes Start: 09/14/20 09:07 Freq: Status: Active Protocol: Document 09/14/20 09:07 PEÑA (Rec: 09/14/20 09:12 [id number]) Nutrition 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 Pt reports UBW of 114# last measured two weeks ago. Current weight likely inaccurate. Pt reports not eating well [place] but able to drink Glucerna a 2-3 times a day. Pt now eating 25-50% of meals. Pt would like 2 ONS/ day. Burn Absent Trauma Absent GI Symptoms None Current % PO Poor (25-49%) Minimum of two criteria No physical signs of malnutrition #1 Nutrition Diagnosis Inadequate oral intake Etiology acute illness As Evidenced by Signs and Symptoms pt eating 25-50% of meals Is patient on ventilator? No Is Patient Ambulatory and/or Out of Bed Yes REE-([facility]-ambulatory/OOB) [ 1460.329 NUTR.MSJOOB] Calculation Used for Recommendations [facility] Additional Notes Protein: (0.8-1g/kg) 53-65 g Fluid: 1 ml/kcal Nutrition Intervention Change Diet Order: Continue Add Supplement/Snack (indicate name/kcal Glucerna BID /protein ) Provides kCal: 440 Provides Protein (gm) 20 Goal #1 Meet at least 75% of protein and kcal needs via PO and ONS intakes Anticipated Discharge Needs: Cardiac, Consistent CHO Follow-Up By: 09/17/20 Additional Comments FU for intakes and ONS tolerance
[2020-09-14] MEDS: ASPIRIN 81 MG TAB CHEW PO SCH (12:15)
[2020-09-14] MEDS: CHOLECALCIFEROL (VIT D3) 1000 UNIT (25 mcg) TAB PO SCH (12:15)
[2020-09-14] MEDS: ZINC SULFATE 220 MG CAP PO SCH ×2 (12:15→21:23)
[2020-09-14] MEDS: ASCORBIC ACID 500 MG TAB PO SCH ×2 (12:16→21:23)
[2020-09-14] MEDS: HEPARIN 5,000 UNIT/1 ML VIAL SUB-Q SCH ×2 (12:16→21:24)
[2020-09-14] MEDS: TICAGRELOR 90 MG TAB PO SCH (12:18)
[2020-09-14] MEDS: amLODIPine 10 MG TAB PO SCH (12:30)
[2020-09-14] MEDS: LISINOPRIL 20 MG TAB PO SCH (12:30)
[2020-09-14] MEDS: METOPROLOL TARTRATE 25 MG TAB PO SCH ×2 (12:31→21:24)
[2020-09-14] MEDS: AZITHROMYCIN/NS 500 MG/250 ML 500 MG/250 ML BAG IV SCH (16:16)
--- NOTE | 2020-09-14 21:43 | Electrocardiograph Report ---
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
[2020-09-15] MEDS: methylPREDNISolone Sod Succinate 40 MG/1 ML INJ IV SCH ×3 (06:27→21:55)
[2020-09-15] MEDS: INSULIN LISPRO 100 UNIT/ML SUB-Q SCH ×4 (07:56→21:57)
[2020-09-15] MEDS: ASPIRIN 81 MG TAB CHEW PO SCH (11:56)
[2020-09-15] MEDS: LISINOPRIL 20 MG TAB PO SCH (11:56)
[2020-09-15] MEDS: CHOLECALCIFEROL (VIT D3) 1000 UNIT (25 mcg) TAB PO SCH (11:57)
[2020-09-15] MEDS: ASCORBIC ACID 500 MG TAB PO SCH ×2 (11:57→21:56)
[2020-09-15] MEDS: ZINC SULFATE 220 MG CAP PO SCH ×2 (11:57→21:56)
[2020-09-15] MEDS: METOPROLOL TARTRATE 25 MG TAB PO SCH ×2 (11:57→21:56)
[2020-09-15] MEDS: HEPARIN 5,000 UNIT/1 ML VIAL SUB-Q SCH ×2 (11:57→21:56)
[2020-09-15] MEDS: amLODIPine 10 MG TAB PO SCH (11:58)
[2020-09-15] MEDS: TICAGRELOR 90 MG TAB PO SCH (11:58)
[2020-09-15] MEDS: AZITHROMYCIN/NS 500 MG/250 ML 500 MG/250 ML BAG IV SCH (15:52)
[2020-09-16] MEDS: methylPREDNISolone Sod Succinate 40 MG/1 ML INJ IV SCH (05:17)
--- NOTE | 2020-09-16 07:47 | Progress Note ---
Assessment and Plan Assessment and plan: -- Acute hypoxemic respiratory failure Current Visit: Yes Status: Acute Requiring supplemental oxygen, pulse oximetry, nebulizer therapy, prone positioning while in bed, chest x-ray. -- Bilateral pneumonia Current Visit: Yes Status: Acute Empiric antibiotics, follow cultures Check procalcitonin, adjust as needed --Positive COVID-19 virus infection Current Visit: Yes Status: Acute Isolation precautions, quach PCR test is positive Inflammatory markers, ID -- Diabetes mellitus Current Visit: No Status: Chronic Consistent carbohydrate diet, Accu-Chek sliding scale coverage hypoglycemia protocol --Hypertension Current Visit: No Status: Chronic Continue current antihypertensives and as needed medications --DVT prophylaxis Current Visit: Yes Status: Acute SCD to bilateral lower extremities while in bed, prophylactic anticoagulation --Advance care planning/full CODE STATUS Current Visit: Yes Status: Acute Closely monitor the patient and adjust the management as needed. Plan of care reviewed with the patient and her nurse Home O2 evaluation if needed ,closely monitor the patient and adjust management as needed Possible discharge home in 1 to 2 days if stable History Interval history: I have seen and examined the patient at the bedside isolation precautions PPE protocol strictly followed per COVID-19 guidelines Mild cough ,patient complains of generalized weakness Vital signs noted Hospitalist Physical - Constitutional Vitals: Temp Pulse Resp BP Pulse Ox 98.6 F 61 16 150/68 99 09/16/20 05:14 09/16/20 05:14 09/16/20 05:14 09/16/20 05:14 09/16/20 05:14 General appearance: Present: mild distress, well-nourished - EENT Eyes: Present: PERRL, EOM intact - Neck Neck: Present: supple, normal ROM - Respiratory Respiratory effort: normal Respiratory: bilateral: diminished, negative: rales, rhonchi, wheezing - Cardiovascular Rhythm: regular Heart Sounds: Present: S1 & S2 - Extremities Extremities: no ischemia, No edema - Abdominal General gastrointestinal: soft, non-tender, non-distended, normal bowel sounds - Integumentary Integumentary: Present: clear, warm - Psychiatric Psychiatric: appropriate mood/affect, cooperative - Neurologic Neurologic: CNII-XII intact, moves all extremities HEART Score - HEART Score Troponin: Troponin T < 0.010 ng/mL (0.00-0.029) 09/13/20 14:49 Results - Labs CBC & Chem 7: 09/14/20 05:34 09/14/20 05:34 Labs: Laboratory Last Values WBC 2.7 K/mm3 (4.5-11.0) L 09/14/20 05:34 RBC 3.93 M/mm3 (3.65-5.03) 09/14/20 05:34 Hgb 12.2 gm/dl (10.1-14.3) 09/14/20 05:34 Hct 35.1 % (30.3-42.9) 09/14/20 05:34 MCV 89 fl (79-97) 09/14/20 05:34 MCH 31 pg (28-32) 09/14/20 05:34 MCHC 35 % (30-34) H 09/14/20 05:34 RDW 13.4 % (13.2-15.2) 09/14/20 05:34 Plt Count 219 K/mm3 (140-440) 09/14/20 05:34 Lymph % (Auto) 17.6 % (13.4-35.0) 09/14/20 05:34 [place] % (Auto) 2.8 % (0.0-7.3) 09/14/20 05:34 Eos % (Auto) 0.0 % (0.0-4.3) 09/14/20 05:34 Baso % (Auto) 0.3 % (0.0-1.8) 09/14/20 05:34 Lymph # (Auto) 0.5 K/mm3 (1.2-5.4) L 09/14/20 05:34 [place] # (Auto) 0.1 K/mm3 (0.0-0.8) 09/14/20 05:34 Eos # (Auto) 0.0 K/mm3 (0.0-0.4) 09/14/20 05:34 Baso # (Auto) 0.0 K/mm3 (0.0-0.1) 09/14/20 05:34 Seg Neutrophils % 79.3 % (40.0-70.0) H 09/14/20 05:34 Seg Neutrophils # 2.2 K/mm3 (1.8-7.7) 09/14/20 05:34 PT 12.5 Sec. (12.2-14.9) 09/13/20 12:33 INR 0.94 (0.87-1.13) 09/13/20 12:33 APTT 28.1 Sec. (24.2-36.6) 09/13/20 12:33 D-Dimer 291.36 ng/mlDDU (0-234) H 09/13/20 12:33 Sodium 140 mmol/L (137-145) 09/14/20 05:34 Potassium 4.2 mmol/L (3.6-5.0) 09/14/20 05:34 Chloride 104.0 mmol/L (98-107) 09/14/20 05:34 Carbon Dioxide 24 mmol/L (22-30) 09/14/20 05:34 Anion Gap 16 mmol/L 09/14/20 05:34 BUN 28 mg/dL (7-17) H 09/14/20 05:34 Creatinine 0.9 mg/dL (0.6-1.2) 09/14/20 05:34 Estimated GFR > 60 ml/min 09/14/20 05:34 BUN/Creatinine Ratio 31 % 09/14/20 05:34 Glucose 219 mg/dL (65-100) H 09/14/20 05:34 POC Glucose 284 mg/dL (70-105) H 09/15/20 21:25 Calcium 8.4 mg/dL (8.4-10.2) 09/14/20 05:34 Magnesium 2.20 mg/dL (1.7-2.3) 09/13/20 12:33 Ferritin 302.7 ng/mL (10.0-200.0) H 09/13/20 13:03 Total Bilirubin 0.30 mg/dL (0.1-1.2) 09/14/20 05:34 AST 17 units/L (5-40) 09/14/20 05:34 ALT 9 units/L (7-56) 09/14/20 05:34 Alkaline Phosphatase 60 units/L (35-129) 09/14/20 05:34 Lactate Dehydrogenase 263 units/L (91-180) H 09/13/20 13:03 Troponin T < 0.010 ng/mL (0.00-0.029) 09/13/20 14:49 C-Reactive Protein 3.40 mg/dL (0.00-1.30) H 09/13/20 13:03 Total Protein 7.3 g/dL (6.3-8.2) 09/14/20 05:34 Albumin 3.7 g/dL (3.9-5) L 09/14/20 05:34 Albumin/Globulin Ratio 1.0 % 09/14/20 05:34 Procalcitonin < 0.05 ng/mL (<0.15) 09/13/20 13:03 Urine Color Yellow (Yellow) 09/13/20 Unknown Urine Turbidity Clear (Clear) 09/13/20 Unknown Urine pH 5.0 (5.0-7.0) 09/13/20 Unknown Ur Specific [place] 1.019 (1.003-1.030) 09/13/20 Unknown Urine Protein 100 mg/dl mg/dL (Negative) 09/13/20 Unknown Urine Glucose (UA) 50 mg/dL (Negative) 09/13/20 Unknown Urine Ketones 20 mg/dL (Negative) 09/13/20 Unknown Urine Blood Neg (Negative) 09/13/20 Unknown Urine Nitrite Neg (Negative) 09/13/20 Unknown Urine Bilirubin Neg (Negative) 09/13/20 Unknown Urine Urobilinogen < 2.0 mg/dL (<2.0) 09/13/20 Unknown Ur Leukocyte Esterase Neg (Negative) 09/13/20 Unknown Urine WBC (Auto) 2.0 /HPF (0.0-6.0) 09/13/20 Unknown Urine RBC (Auto) 2.0 /HPF (0.0-6.0) 09/13/20 Unknown U Epithel Cells (Auto) 2.0 /HPF (0-13.0) 09/13/20 Unknown Urine Mucus Few /HPF 09/13/20 Unknown Coronavirus (PCR) Positive (Negative) A 09/14/20 Unknown Microbiology: Microbiology 09/13/20 13:12 Peripheral/Venous Blood Culture - Preliminary NO GROWTH AFTER 48 HOURS 09/13/20 13:08 Peripheral/Venous Blood Culture - Preliminary NO GROWTH AFTER 48 HOURS Smith/IV: Voiding Method Toilet Active Medications - Current Medications Current Medications: Generic Name Dose Route Start Last Admin Trade Name Freq PRN Reason Stop Dose Admin Acetaminophen 650 mg 09/13/20 13:07 Acetaminophen 325 Mg Tab PO Q4H PRN Pain MILD(1-3)/Fever >100.5/BHATTI Albuterol 2.5 mg 09/13/20 13:07 Albuterol 2.5 Mg/3 Ml Nebu IH Q4HRT PRN Shortness Of Breath Amlodipine Besylate 10 mg 09/14/20 10:00 09/15/20 11:58 Amlodipine 10 Mg Tab PO 10 mg DAILY ISHAN Administration Ascorbic Acid 500 mg 09/13/20 22:00 09/15/20 21:56 Ascorbic Acid 500 Mg Tab PO 500 mg BID ISHAN Administration Aspirin 81 mg 09/14/20 10:00 09/15/20 11:56 Aspirin 81 Mg Tab Chew PO 81 mg DAILY ISHAN Administration Cholecalciferol 1,000 unit 09/14/20 10:00 09/15/20 11:57 Cholecalciferol (Vit D3) 1000 Unit (25 Mcg) Tab PO 1,000 unit QDAY ISHAN Administration Dexamethasone 6 mg 09/16/20 10:00 Dexamethasone 4 Mg Tab PO 09/22/20 10:01 DAILY ISHAN Dextrose 50 ml 09/13/20 13:28 Dextrose 50% In Water (25gm) 50 Ml Syringe IV Q30MIN PRN Hypoglycemia Protocol Glipizide 5 mg 09/16/20 08:00 Glipizide 5 Mg Tab PO QAMDIAB ISHAN Heparin Sodium (Porcine) 5,000 unit 09/13/20 22:00 09/15/20 21:56 Heparin 5,000 Unit/1 Ml Vial SUB-Q 5,000 unit Q12HR ISHAN Administration Azithromycin 500 mg in 250 mls @ 250 mls/hr 09/13/20 14:00 09/15/20 15:52 Zithromax/Ns IV 09/17/20 18:59 250 mls/hr Q24H ISHAN Administration Protocol Insulin Human Isoph/Insulin Regular 5 unit 09/16/20 08:00 Insulin Nph/Regular 70/30 Inj SUB-Q BIDDIAB ISHAN Insulin Human Lispro 0 unit 09/13/20 16:30 09/15/20 21:57 Insulin Lispro 100 Unit/Ml SUB-Q 4 unit ACHS ISHAN Administration Protocol Isosorbide Mononitrate 30 mg 09/14/20 10:00 09/15/20 11:57 Isosorbide Mononitrate Er 30 Mg Tab PO 30 mg QDAY ISHAN Administration Lisinopril 20 mg 09/14/20 10:00 09/15/20 11:56 Lisinopril 20 Mg Tab PO 20 mg QDAY ISHAN Administration Metoprolol Tartrate 25 mg 09/13/20 22:00 09/15/20 21:56 Metoprolol Tartrate 25 Mg Tab PO 25 mg BID ISHAN Administration Ondansetron HCl 4 mg 09/13/20 13:07 Ondansetron 4 Mg/2 Ml Inj IV Q8H PRN Nausea And Vomiting Sodium Chloride 10 ml 09/13/20 22:00 09/15/20 21:56 Sodium Chloride 0.9% 10 Ml Flush Syringe IV 10 ml BID ISHAN Administration Sodium Chloride 10 ml 09/13/20 13:07 Sodium Chloride 0.9% 10 Ml Flush Syringe IV PRN PRN LINE FLUSH Ticagrelor 90 mg 09/14/20 10:00 09/15/20 11:58 Ticagrelor 90 Mg Tab PO 90 mg DAILY ISHAN Administration Zinc Sulfate 220 mg 09/13/20 22:00 09/15/20 21:56 Zinc Sulfate 220 Mg Cap PO 220 mg BID ISHAN Administration Nutrition/Malnutrition Assess - Dietary Evaluation Nutrition/Malnutrition Findings: Nutrition Notes Start: 09/14/20 09:07 Freq: Status: Active Protocol: Document 09/14/20 09:07 PEÑA (Rec: 09/14/20 09:12 PEÑA [id number]) Nutrition Notes Need for Assessment generated from: operation agent Initial or Follow up Assessment Current Diagnosis Diabetes,Hypertension, Respiratory Failure Other Pertinent Diagnosis COVID PUI, pneu Current Diet Cardiac, Consistent CHO Labs/Tests POC BG 219 Pertinent Medications Solu Medrol Height 4 ft 11 in Weight 65.77 kg Usual Body Weight 51.81 kg [place] Body Weight (kg) 43.18 BMI 29.2 Intake Prior to Admission Poor Weight Status Overweight Subjective/Other Information RN screen for MST. Pt reports UBW of 114# last measured two weeks ago. Current weight likely inaccurate. Pt reports not eating well [place] but able to drink Glucerna a 2-3 times a day. Pt now eating 25-50% of meals. Pt would like 2 ONS/ day. Burn Absent Trauma Absent GI Symptoms None Current % PO Poor (25-49%) Minimum of two criteria No physical signs of malnutrition #1 Nutrition Diagnosis Inadequate oral intake Etiology acute illness As Evidenced by Signs and Symptoms pt eating 25-50% of meals Is patient on ventilator? No Is Patient Ambulatory and/or Out of Bed Yes REE-([facility]-ambulatory/OOB) [ 1460.329 NUTR.MSJOOB] Calculation Used for Recommendations [facility] Additional Notes Protein: (0.8-1g/kg) 53-65 g Fluid: 1 ml/kcal Nutrition Intervention Change Diet Order: Continue Add Supplement/Snack (indicate name/kcal Glucerna BID /protein ) Provides kCal: 440 Provides Protein (gm) 20 Goal #1 Meet at least 75% of protein and kcal needs via PO and ONS intakes Anticipated Discharge Needs: Cardiac, Consistent CHO Follow-Up By: 09/17/20 Additional Comments FU for intakes and ONS tolerance
[2020-09-16] MEDS ORDERED: glipiZIDE 5 MG TAB PO SCH (08:00)
[2020-09-16] MEDS ORDERED: INSULIN NPH/REGULAR 70/30 INJ SUB-Q SCH (08:30)
[2020-09-16] MEDS: INSULIN LISPRO 100 UNIT/ML SUB-Q SCH ×2 (08:33→12:25)
[2020-09-16 08:50] LABS: C-Reactive Protein 0.7 mg/dL (0.00-1.30)
[2020-09-16] MEDS: amLODIPine 10 MG TAB PO SCH (09:37)
[2020-09-16] MEDS: ASPIRIN 81 MG TAB CHEW PO SCH (09:37)
[2020-09-16] MEDS: TICAGRELOR 90 MG TAB PO SCH (09:37)
[2020-09-16] MEDS: ZINC SULFATE 220 MG CAP PO SCH (09:38)
[2020-09-16] MEDS: LISINOPRIL 20 MG TAB PO SCH (09:38)
[2020-09-16] MEDS: METOPROLOL TARTRATE 25 MG TAB PO SCH (09:39)
[2020-09-16] MEDS: ASCORBIC ACID 500 MG TAB PO SCH (09:39)
[2020-09-16] MEDS: HEPARIN 5,000 UNIT/1 ML VIAL SUB-Q SCH (09:39)
[2020-09-16] MEDS: CHOLECALCIFEROL (VIT D3) 1000 UNIT (25 mcg) TAB PO SCH (09:39)
[2020-09-16] MEDS ORDERED: DEXAMETHASONE 4 MG TAB PO SCH (10:00)
[2020-09-16] MEDS: AZITHROMYCIN/NS 500 MG/250 ML 500 MG/250 ML BAG IV SCH (13:37)
[2020-09-16 14:41] VITALS: BP 134/70
--- NOTE | 2020-09-16 15:13 | Discharge Summary ---
Providers - Providers Date of Admission: 09/13/20 13:07 Date of discharge: 09/16/20 Attending physician: DUSTIN BARRIENTOS Primary care physician: CONDENSER TESTER Hospitalization Reason for admission: Acute hypoxic respiratory failure/COVID-19 infection Condition: Stable Pertinent studies: Chest x-ray Hospital course: 64-year-old female patient with significant past medical history of hypertension diabetes mellitus coronary artery disease s/p PCI was admitted through emergency room with worsening shortness of breath, acute hypoxic respiratory failure requiring supplemental oxygen. Patient was high suspicion for Covid, placed in isolation PUI, Covid PCR test was positive evaluated by ID, patient received treatment per COVID-19 guidelines. Patient also evaluated by respiratory therapist and check for home oxygen at discharge Patient symptoms slowly but gradually improved today she is comfortable no new complaints, vital signs stable physical examination prior to discharge, no new changes. Home O2 evaluation was within normal limits and patient did not require home O2. Patient is hemodynamically and clinically stable at discharge Discharge diagnosis -- Acute hypoxemic respiratory failure Requiring supplemental oxygen, pulse oximetry, nebulizer therapy, prone positioning while in bed, symptoms improved -- Bilateral pneumonia Due to COVID-19 empiric antibiotics, follow cultures --Positive COVID-19 virus infection Isolation precautions, quach PCR test is positive Inflammatory markers, ID -- Diabetes mellitus Consistent carbohydrate diet, Accu-Chek sliding scale coverage hypoglycemia protocol --Hypertension Continue current antihypertensives and as needed medications --DVT prophylaxis SCD to bilateral lower extremities while in bed, prophylactic anticoagulation --Advance care planning/full CODE STATUS Closely monitor the patient and adjust the management as needed. Disposition: DC-01 TO HOME OR SELFCARE Final Discharge Diagnosis (Prints w/discharge instructions): Acute hypoxic respiratory failure. Bilateral pneumonia. Positive COVID-19 infection. Type 2 diabetes mellitus. Hypertension Time spent for discharge: 35 min Core Measure Documentation - Palliative Care Palliative Care/ Comfort Measures: Not Applicable - Core Measures Any of the following diagnoses?: none Exam - Constitutional Vitals: Temp Pulse Resp BP Pulse Ox 97.7 F 60 16 134/70 100 09/16/20 13:33 09/16/20 13:33 09/16/20 13:33 09/16/20 13:33 09/16/20 13:33 General appearance: Present: no acute distress, well-nourished - EENT Eyes: Present: PERRL, EOM intact - Neck Neck: Present: supple, normal ROM - Respiratory Respiratory effort: normal Respiratory: bilateral: diminished, negative: rales, rhonchi, wheezing - Cardiovascular Rhythm: regular Heart Sounds: Present: S1 & S2 - Extremities Extremities: no ischemia, No edema - Abdominal General gastrointestinal: Present: soft, non-tender, non-distended - Integumentary Integumentary: Present: clear, warm - Musculoskeletal Musculoskeletal: strength equal bilaterally - Psychiatric Psychiatric: appropriate mood/affect, cooperative - Neurologic Neurologic: CNII-XII intact, moves all extremities Plan Activity: advance as tolerated Diet: diabetic Additional Instructions: Strongly advised to comply with isolation precautions and PPE protocols per COVID-19 guidelines, self quarantine, social distancing, mask, and hygiene and other instructions given to you by the discharge nurse. If you have worsening symptoms contact MD or go to emergency room Follow up with: PRIMARY CARE,MD [Primary Care Provider] - 3-5 Days Prescriptions: Dexamethasone 6 mg PO DAILY #6 tablet Ascorbic Acid [Vitamin C] 500 mg PO BID #30 tablet Cholecalciferol Vit D3 [Vitamin D3 1,000 UNIT TAB] 1,000 unit PO QDAY #15 tablet Zinc Sulfate 220 mg PO BID #30 capsule
== END 2020-09-16 16:45 | disposition home or self-care (01) | DRG 177 ==
LOC: ED 12:05 → 3A 13:07
PROVIDERS: ADMIT Internal Medicine; ATTEND Internal Medicine
DX: U07.1 COVID-19 (principal); J18.9 Pneumonia, unspecified organism; J96.01 Acute respiratory failure with hypoxia; I10 Essential (primary) hypertension; I25.10 Atherosclerotic heart disease of native coronary artery without angina pectoris; E11.9 Type 2 diabetes mellitus without complications; Z79.899 Other long term (current) drug therapy; Z79.891 Long term (current) use of opiate analgesic; Z79.01 Long term (current) use of anticoagulants; Z88.0 Allergy status to penicillin; Z79.82 Long term (current) use of aspirin; I25.2 Old myocardial infarction; Z95.5 Presence of coronary angioplasty implant and graft; Z83.3 Family history of diabetes mellitus; Z82.49 Family history of ischemic heart disease and other diseases of the circulatory system
CPT/HCPCS: 36415; 71046; 80053; 81001; 82728; 82947; 82962; 83615; 83735; 84145; 84484; 85025; 85379; 85610; 85730; 86140; 87040; 93005; 96374; G0378; J0456; J1100; J1644; J1815; J2920; J8540; U0003

== ENCOUNTER 2021-02-04 20:15 | Emergency (ER) | payer OTHER ==
[2021-02-04 21:28] VITALS: BP 145/53
[2021-02-04 21:52] LABS: Basophils % (Auto) 0.5 % (0.0-1.8); Eosinophils # (Auto) 0.2 K/mm3 (0.0-0.4); Hemoglobin 11.7 gm/dl (10.1-14.3); Lymphocytes # (Auto) 0.6 K/mm3 (1.2-5.4); Lymphocytes % (Auto) 10.4 % (13.4-35.0); Mean Corpuscular HGB Conc 33 % (30-34); Mean Corpuscular Volume 91 fl (79-97); Monocytes # (Auto) 0.4 K/mm3 (0.0-0.8); Monocytes % (Auto) 7.8 % (0.0-7.3); Platelet Count 177 K/mm3 (140-440); Red Blood Count 3.95 M/mm3 (3.65-5.03); Red Cell Distribution Width 13.9 % (13.2-15.2)
--- NOTE | 2021-02-04 22:01 | XRay Report ---
CHEST 1 VIEW 02/04/2021 9:45 PM INDICATION / CLINICAL INFORMATION: Syncope. COMPARISON: 2 views of the chest from 09/13/2020. FINDINGS: SUPPORT DEVICES: None. HEART / MEDIASTINUM: No significant abnormality. LUNGS / PLEURA: No significant pulmonary abnormality. No significant pleural effusion. No pneumothora x. ADDITIONAL FINDINGS: No significant additional findings. IMPRESSION: 1. No acute abnormality of the chest. Signer Name: Dharmesh Ford MD Signed: 02/04/2021 9:57 PM Workstation Name: [id number]
--- NOTE | 2021-02-04 22:09 | Cat Scan Report ---
CT HEAD WITHOUT CONTRAST INDICATION / CLINICAL INFORMATION: Syncope. TECHNIQUE: All CT scans at this location are performed using CT dose reduction for ALARA by means of automated exposure control. COMPARISON: None available. FINDINGS: BRAIN PARENCHYMA: No acute intracranial hemorrhage. No evidence of recent infarct. No mass effect or midline shift. VENTRICULAR SYSTEM/EXTRA-AXIAL SPACES: Moderate ventricular enlargement is noted with mild generalize d atrophy. No extra-axial fluid collection. ORBITS: Normal as visualized. SKELETAL SYSTEM/SOFT TISSUES: A suspected posterior parietal scalp hematoma measures 4 cm. No acute o sseous abnormality. PARANASAL SINUSES/MASTOID AIR CELLS: There is a smaller fluid level in the right maxillary sinus with mild thickening throughout the ethmoid air cells. No other significant abnormality. ADDITIONAL FINDINGS: None. IMPRESSION: 1. Moderate ventricular enlargement, out of proportion to the mild generalized atrophy seen on this s tudy. Please correlate with the clinical findings. 2. No other acute intracranial abnormality. 3. Possible posterior parietal scalp hematoma. Signer Name: Dharmesh Ford MD Signed: 02/04/2021 10:04 PM Workstation Name: [id number]
[2021-02-04 22:11] LABS: INR 0.92 (0.87-1.13)
[2021-02-04 22:27] LABS: Alanine Aminotransferase 13 units/L (7-56); Albumin 4.2 g/dL (3.9-5); BUN/Creatinine Ratio 20; Blood Urea Nitrogen 22 mg/dL (7-17); Calcium 8.8 mg/dL (8.4-10.2); Hemolysis Index 63
--- NOTE | 2021-02-05 01:38 | Cat Scan Report ---
CTA CHEST WITH CONTRAST INDICATION / CLINICAL INFORMATION: Syncope with elevated D-dimer. TECHNIQUE: Axial CT images were obtained through the chest after injection of IV contrast. 3 plane RI P and/or 3D reconstructions were produced. All CT scans at this location are performed using CT dose reduction for ALARA by means of automated exposure control. COMPARISON: None available. FINDINGS: PULMONARY ARTERIES: No pulmonary emboli. THORACIC AORTA: No significant abnormality. HEART: Mildly enlarged heart CORONARY ARTERY CALCIFICATION: Mild. MEDIASTINUM / VIANEY: No significant abnormality. PLEURA: No pleural effusion. No pneumothorax. LUNGS: No acute air space or interstitial disease. ADDITIONAL FINDINGS: None. UPPER ABDOMEN: No acute findings. SKELETAL STRUCTURES: No significant osseous abnormality. IMPRESSION: 1. No CT evidence for pulmonary embolism. 2. No acute findings. 3. Upper limits of normal heart size. Signer Name: Erik Gilmore DO Signed: 02/05/2021 1:33 AM Workstation Name: [id number]
--- NOTE | 2021-02-05 01:53 | Emergency Department Report ---
ED General Adult HPI - General Stated complaint: FAINT Time Seen by Provider: 02/04/21 20:42 Source: patient - History of Present Illness Initial comments: The patient presents to the emergency department via EMS for syncopal episode. Patient states she was at [facility] with her family member when she passed out. Patient denies chest pain prior to passing out or any shortness of breath. Patient states she has never had anything like this before. She denies currently having any chest pain, shortness breath, abdominal pain, headache. Patient states she feels like her normal self. -: Sudden Severity scale (0 -10): 0 Consistency: now resolved Improves with: none Worsens with: none Associated Symptoms: denies other symptoms Treatments Prior to Arrival: none - Related Data Home Medications Medication Instructions Recorded Confirmed Last Taken amLODIPine 10 mg PO DAILY 02/17/17 09/13/20 09/12/20 lisinopriL [Zestril TAB] 20 mg PO QDAY 02/17/17 09/13/20 09/12/20 Ticagrelor [Brilinta] 90 mg PO DAILY 09/29/18 09/13/20 09/12/20 glipiZIDE [Glucotrol] 5 mg PO DAILY 09/29/18 09/13/20 09/12/20 Previous Rx's Medication Instructions Recorded Last Taken Type Aspirin [Aspirin BABY CHEW TAB] 81 mg PO DAILY tab.chew 02/21/17 09/12/20 Rx ISOSORBIDE MONOnitrate [Imdur ER] 30 mg PO QDAY #30 tablet 06/01/17 09/12/20 Rx Metoprolol [Lopressor TAB] 25 mg PO BID #60 tablet 06/01/17 09/12/20 Rx Acetaminophen 500 mg PO Q6HR PRN #30 capsule 09/09/20 09/13/20 Rx Ascorbic Acid [Vitamin C] 500 mg PO BID #30 tablet 09/16/20 Unknown Rx Cholecalciferol Vit D3 [Vitamin D3 1,000 unit PO QDAY #15 tablet 09/16/20 Unknown Rx 1,000 UNIT TAB] Dexamethasone 6 mg PO DAILY #6 tablet 09/16/20 Unknown Rx Zinc Sulfate 220 mg PO BID #30 capsule 09/16/20 Unknown Rx Allergies Allergy/AdvReac Type Severity Reaction Status Date / Time Penicillins Allergy Nausea Verified 02/04/21 20:49 ED Review of Systems ROS: Stated complaint: FAINT Other details as noted in HPI Comment: All other systems reviewed and negative Constitutional: denies: chills, fever Eyes: denies: eye pain, eye discharge, vision change ENT: denies: ear pain, throat pain Respiratory: denies: cough, shortness of breath, wheezing Cardiovascular: denies: chest pain, palpitations Endocrine: no symptoms reported Gastrointestinal: denies: abdominal pain, nausea, diarrhea Genitourinary: denies: urgency, dysuria, discharge Musculoskeletal: denies: back pain, joint swelling, arthralgia Skin: denies: rash, lesions Neurological: denies: headache, weakness, paresthesias Psychiatric: denies: anxiety, depression Hematological/Lymphatic: denies: easy bleeding, easy bruising ED Past Medical Hx - Past Medical History Hx Hypertension: Yes Hx Heart Attack/AMI: Yes Hx Congestive Heart Failure: No Hx Diabetes: Yes Hx Asthma: No Hx COPD: No - Surgical History Hx Coronary Stent: Yes (X4) - Social History Smoking Status: Never Smoker - Medications Home Medications: Home Medications Medication Instructions Recorded Confirmed Last Taken Type amLODIPine 10 mg PO DAILY 02/17/17 09/13/20 09/12/20 History lisinopriL [Zestril TAB] 20 mg PO QDAY 02/17/17 09/13/20 09/12/20 History Aspirin [Aspirin BABY CHEW TAB] 81 mg PO DAILY tab.chew 02/21/17 09/13/20 09/12/20 Rx ISOSORBIDE MONOnitrate [Imdur ER] 30 mg PO QDAY #30 tablet 06/01/17 09/13/20 09/12/20 Rx Metoprolol [Lopressor TAB] 25 mg PO BID #60 tablet 06/01/17 09/13/20 09/12/20 Rx Ticagrelor [Brilinta] 90 mg PO DAILY 09/29/18 09/13/20 09/12/20 History glipiZIDE [Glucotrol] 5 mg PO DAILY 09/29/18 09/13/20 09/12/20 History Acetaminophen 500 mg PO Q6HR PRN #30 capsule 09/09/20 09/13/20 09/13/20 Rx Ascorbic Acid [Vitamin C] 500 mg PO BID #30 tablet 09/16/20 Unknown Rx Cholecalciferol Vit D3 [Vitamin D3 1,000 unit PO QDAY #15 tablet 09/16/20 Unknown Rx 1,000 UNIT TAB] Dexamethasone 6 mg PO DAILY #6 tablet 09/16/20 Unknown Rx Zinc Sulfate 220 mg PO BID #30 capsule 09/16/20 Unknown Rx ED Course Vital Signs 02/04/21 02/04/21 20:41 21:01 Temperature 98.9 F Pulse Rate 69 75 Respiratory 14 15 Rate Blood Pressure 145/53 Blood Pressure 146/58 [Left] O2 Sat by Pulse 99 98 Oximetry ED Medical Decision Making - Lab Data Result diagrams: 02/04/21 21:20 02/04/21 21:20 Lab Results 02/04/21 02/04/21 02/04/21 Range/Units 20:41 21:20 21:20 WBC 5.6 (4.5-11.0) K/mm3 RBC 3.95 (3.65-5.03) M/mm3 Hgb 11.7 (10.1-14.3) gm/dl Hct 36.0 (30.3-42.9) % MCV 91 (79-97) fl MCH 30 (28-32) pg MCHC 33 (30-34) % RDW 13.9 (13.2-15.2) % Plt Count 177 (140-440) K/mm3 Lymph % (Auto) 10.4 L (13.4-35.0) % [place] % (Auto) 7.8 H (0.0-7.3) % Eos % (Auto) 3.0 (0.0-4.3) % Baso % (Auto) 0.5 (0.0-1.8) % Lymph # (Auto) 0.6 L (1.2-5.4) K/mm3 [place] # (Auto) 0.4 (0.0-0.8) K/mm3 Eos # (Auto) 0.2 (0.0-0.4) K/mm3 Baso # (Auto) 0.0 (0.0-0.1) K/mm3 Seg Neutrophils % 78.3 H (40.0-70.0) % Seg Neutrophils # 4.4 (1.8-7.7) K/mm3 PT (12.2-14.9) Sec. INR (0.87-1.13) D-Dimer (0-234) ng/mlDDU Sodium 140 (137-145) mmol/L Potassium 4.9 (3.6-5.0) mmol/L Chloride 103.0 (98-107) mmol/L Carbon Dioxide 24 (22-30) mmol/L Anion Gap 18 mmol/L BUN 22 H (7-17) mg/dL Creatinine 1.1 (0.6-1.2) mg/dL Estimated GFR > 60 ml/min BUN/Creatinine Ratio 20 % Glucose 205 H (65-100) mg/dL POC Glucose 163 H (70-105) mg/dL Calcium 8.8 (8.4-10.2) mg/dL Magnesium 1.60 L (1.7-2.3) mg/dL Total Bilirubin 0.30 (0.1-1.2) mg/dL AST 19 (5-40) units/L ALT 13 (7-56) units/L Alkaline Phosphatase 93 (35-129) units/L Troponin T < 0.010 (0.00-0.029) ng/mL NT-Pro-B Natriuret Pep 385.7 (0-900) pg/mL Total Protein 6.8 (6.3-8.2) g/dL Albumin 4.2 (3.9-5) g/dL Albumin/Globulin Ratio 1.6 % 02/04/21 02/04/21 Range/Units 21:20 23:11 WBC (4.5-11.0) K/mm3 RBC (3.65-5.03) M/mm3 Hgb (10.1-14.3) gm/dl Hct (30.3-42.9) % MCV (79-97) fl MCH (28-32) pg MCHC (30-34) % RDW (13.2-15.2) % Plt Count (140-440) K/mm3 Lymph % (Auto) (13.4-35.0) % [place] % (Auto) (0.0-7.3) % Eos % (Auto) (0.0-4.3) % Baso % (Auto) (0.0-1.8) % Lymph # (Auto) (1.2-5.4) K/mm3 [place] # (Auto) (0.0-0.8) K/mm3 Eos # (Auto) (0.0-0.4) K/mm3 Baso # (Auto) (0.0-0.1) K/mm3 Seg Neutrophils % (40.0-70.0) % Seg Neutrophils # (1.8-7.7) K/mm3 PT 13.4 (12.2-14.9) Sec. INR 0.92 (0.87-1.13) D-Dimer 493.85 H (0-234) ng/mlDDU Sodium (137-145) mmol/L Potassium (3.6-5.0) mmol/L Chloride (98-107) mmol/L Carbon Dioxide (22-30) mmol/L Anion Gap mmol/L BUN (7-17) mg/dL Creatinine (0.6-1.2) mg/dL Estimated GFR ml/min BUN/Creatinine Ratio % Glucose (65-100) mg/dL POC Glucose (70-105) mg/dL Calcium (8.4-10.2) mg/dL Magnesium (1.7-2.3) mg/dL Total Bilirubin (0.1-1.2) mg/dL AST (5-40) units/L ALT (7-56) units/L Alkaline Phosphatase (35-129) units/L Troponin T < 0.010 (0.00-0.029) ng/mL NT-Pro-B Natriuret Pep (0-900) pg/mL Total Protein (6.3-8.2) g/dL Albumin (3.9-5) g/dL Albumin/Globulin Ratio % - EKG Data -: EKG Interpreted by Me EKG shows normal: sinus rhythm Rate: normal - Radiology Data Radiology results: report reviewed - Medical Decision Making CT angiogram of the chest was obtained due to the patient having elevated D- dimer and and lieu of a syncopal episode Discussed results with patient Discussed with patient need for admission but the patient politely declined. I had extensive conversation with the patient expressed my concerns for her to be admitted but again she politely declined. Critical care attestation.: If time is entered above; I have spent that time in minutes in the direct care of this critically ill patient, excluding procedure time. ED Disposition Clinical Impression: Vasovagal attack Disposition: HOME / SELF CARE / HOMELESS Is pt being admited?: No Does the pt Need Aspirin: No Condition: Stable Instructions: Syncope, Syncope (ED) Additional Instructions: Return if worse or if you have chest pain or shortness of breath. Referrals: PRIMARY CARE, [Primary Care Provider] - 3-5 Days KISHA STRINGER MD [Staff Physician] - 3-5 Days Time of Disposition: 02:06
--- NOTE | 2021-02-06 12:17 | Electrocardiograph Report ---
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
== END 2021-02-05 02:33 | disposition home or self-care (01) ==
LOC: ED 20:15
DX: R55 Syncope and collapse (principal); I10 Essential (primary) hypertension; E11.8 Type 2 diabetes mellitus with unspecified complications; Z88.0 Allergy status to penicillin; Z98.890 Other specified postprocedural states
CPT/HCPCS: 36415; 70450; 71045; 71275; 80053; 82962; 83735; 83880; 84484; 85025; 85379; 85610; 93005; 99285; Q9967